=== PATIENT | female | born 2000 | race Caucasian/White ===

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

== ENCOUNTER 2022-12-11 21:19 | Observation (INO) ==
--- NOTE | 2022-12-11 22:13 | Emergency Department Note ---
Impression & Plan COVID-19, , Acute dehydration, Nausea & vomiting ED Provider Note NAME: LORRAINE HERNADEZ AGE: 22 SEX: F : 2000 ARRIVES VIA: Walk-In INFORMANT: Patient, ED PROVIDER(S): Sami Herrera MD CHIEF COMPLAINT: Fevers, body aches MEDICAL DECISION MAKING: Patient presents due to concern for fever and associated body aches in the setting of third trimester . IV was established and blood work was obtained. The patient was ordered IV antipyretics and IV fluids as well as IV antiemetics. Upon subsequent re assessment the patient did have some improvement in symptoms and was able to keep a bit of water down. Blood work showed a normal white count with a normal hemoglobin and platelet count. Kidney function is unremarkable. Patient's bio fire is positive for COVID-19. Currently not requiring supplemental oxygen. The patient's chest x-ray does not show any overt pneumonia. Patient is COVID- 19 positive. The patient has received 2 doses of vaccine. Patient has been persistently tachycardic into the 140s. The patient does not have any any overt signs of lower extremity swelling or DVT. However, given the patient's persistent discomfort tachycardia in the setting of do not think unreasonable for admission at this time. I did speak with the on-call CHIEF CUSTOMER OFFICER physician who states that they would typically not bring somebody on to L&D given her COVID status and they would defer to medical treatment at this time and if needed they can be on his consultation. This was per Dr. Hooks with CHIEF CUSTOMER OFFICER. I subsequently did speak with on-call hospitalist Dr. Lamar who admitted the patient to the medicine service. Prior /Outside records reviewed: I reviewed an OB visit from RADHA Sherman from December 02, 2022. Patient had been seen at that time and about 28 weeks and was scheduled for 2-hour glucose tolerance test. Patient had declined Tdap at that time. No contractions leaking of fluid and still feeling movement. Differential diagnosis: Viral syndrome, otitis, pharyngitis, pneumonia, influenza, meningitis, urinary tract infection, sepsis, bacteremia, as well as other pathologies. Diagnostics, as interpreted by me: ECG: Sinus tachycardia, rate rate of 135, normal AL and QRS, normal axis no ST elevations. No prior EKGs for comparison. Cardiac monitoring: An order was placed for continuous cardiac monitoring. The monitor shows a rate of 135 with tachycardic and regular rhythm. Patient was placed on pulse oximetry Medical decision rules: Wells score Imaging studies: See below I informally reviewed the patient's chest x-ray which does not show obvious consolidative pneumonia or pneumothorax. HPI: Patient presents due to concern for fever and body aches which began last evening. The patient's temperature has been greater than 101. The patient has been taking some occasional Tylenol. The patient is approximate 29 weeks and is a G1, P0. The patient has had associated movement but no leakage of fluid or vaginal bleeding. Patient does complain of diffuse body aches. No known sick contacts or recent travel. Patient denies any congestion. The patient has had mild nonproductive cough. Patient does complain of some chest discomfort. Chest discomfort is with coughing. No leg swelling or calf pain no history of DVT or PE. Patient has had associated nausea and vomiting. The patient's vomited approximate 5 times. No blood in the vomit. Patient denies any dysuria. PAST MEDICAL HISTORY: See Below PAST SURGICAL HISTORY: See Below SOCIAL HISTORY: See Below HOME MEDICATIONS: See Below ALLERGIES: See Below VITALS: See Below PHYSICAL EXAMINATION: GENERAL: Ill in appearance but nontoxic. EYE EXAM: Normal conjunctiva. PERRL, no anisocoria and EOM's grossly intact w/o pain. OROPHARYNX: Moist mucus membranes, grossly normal dentition. NECK: Supple, no nuchal rigidity, no adenopathy, non-tender. No signs of m eningismus. FROM of the neck with good chin to chest and neck extension. No stridor. LUNGS: Clear to auscultation. Normal chest wall mechanics. HEART: Tachycardic and regular, no MRG. ABDOMEN: Abdomen soft, fundus above the umbilicus, no masses, no rebound or guarding. BACK: No CVA TTP. SKIN: No rashes and no bruising. UPPER EXTREMITIES: Upper extremities are grossly normal. LOWER EXTREMITIES: Grossly normal, no edema. Negative Homans' sign bilaterally. NEURO EXAM: A&O x3, cranial nerves II-XII grossly intact, normal speech, moves all 4 extremities. 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, left Seizure as baby Surgical History History of ankle surgery History of cholecystectomy History of eye removal History of oral surgery palatoplasty for cleft palate History of placement of ear tubes Family History Family/Other Deep vein thrombosis, Onset Age: 80 great-grandmother Family/Other Myocardial infarction Mother Gestational diabetes Denies family history of Ovarian cancer Prostate cancer Breast cancer Colorectal cancer Uterine cancer Social History Smoking Status: Never smoker Second Hand Exposure: No; Do You Dip or Chew Tobacco: No; Hx Alcohol Use: No Hx Substance Use: Yes Substance Use Type Other:: daily use Preferred Language: [place] Communication Ability: Effective Hearing Ability: Normal 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 Feels Safe at Home: Yes Childhood Exposure to Second-Hand Smoke: Yes Diet: regular caffeine: No Dental Care, Regularly: Yes Physical Activity Frequency: 1-2 Times per Week Seatbelt Use: always Assistive Devices: None Allergies Allergies Allergy/AdvReac Type Severity Reaction Status Date / Time morphine AdvReac Severe GI UPSET Verified 11/03/22 08:21 Home Meds Home Medications Medication Instructions Recorded Confirmed vit no.95-ferrous 1 tab PO DAILY 12/11/22 12/11/22 fumarate 28 mg-folic acid 800 mcg tablet () Previous Rx's Medication Instructions Recorded acetone (urine) test (Ketone Urine #50 ea 12/04/22 Test strips) blood sugar diagnostic (OneTouch #150 ea 12/04/22 Verio test strips) blood-glucose meter (OneTouch #1 ea 12/04/22 Verio Reflect Meter) insulin NPH isoph U-100 human 100 10 unit (0.1 mL) subcut QPM #15 mL 12/04/22 unit/mL (3 mL) subcutaneous pen (Humulin N NPH U-100 Insulin SamsonikPen) lancets 33 gauge #150 ea 12/04/22 pen needle, diabetic 32 gauge x #100 ea 12/04/22" (BD Ultra-Fine Jill Pen Needle) acetaminophen 500 mg capsule 1,000 mg PO Q8H PRN pain or fever 12/13/22 #10 caps Results & Data (ED) Vital Signs Vital Signs - 24 hr 12/11/22 21:31 Temperature 38.5 C H Temperature Source Oral Pulse Rate 151 H Respiratory Rate 18 Respiratory Effort / Characteristics Non-Labored Spontaneous Respiratory Depth Normal Blood Pressure 132/79 Blood Pressure Mean 96 Pulse Oximetry 99 Oxygen Delivery Method Room Air Sepsis Recent Fever Within 48 Hours Yes Sepsis New/Unexplained Change in Mental Status No Sepsis Action Taken by Nursing No Action Required Home Medications Current Medication List: was personally reviewed by me Laboratory Data Attestation: I reviewed the patient's lab results. 12/13/22 06:25 12/13/22 06:25 Lab Results 12/11/22 12/11/22 12/11/22 Range/Units 22:00 22:00 22:00 WBC 9.54 (4.8-10.8) K/ul RBC 4.30 (4.20-5.40) M/uL Hgb 12.1 (12.0-16.0) g/dl Hct 35.1 L (37.0-47.0) % MCV 81.6 (80.0-100.0) fL MCH 28.1 (25.0-34.0) pg MCHC 34.5 (32.0-36.0) g/dL RDW Std Deviation 41.1 (36.4-46.3) fL RDW Coeff of Ryan 14.2 (11.5-14.5) % Plt Count 154 (130-400) K/uL MPV 10.9 (9.4-12.4) fL Immature Gran % (Auto) 0.6 % Neut % (Auto) 91.3 % Lymph % (Auto) 3.4 % Colbert % (Auto) 4.2 % Eos % (Auto) 0.2 % Baso % (Auto) 0.3 % Neut # (Auto) 8.71 H (1.40-6.50) K/uL Lymph # (Auto) 0.32 L (1.20-3.40) K/uL Colbert # (Auto) 0.40 (0.11-0.59) K/uL Eos # (Auto) 0.02 (0.00-0.50) K/uL Baso # (Auto) 0.03 (0.00-0.20) K/uL Immature Gran # (Auto) 0.06 (0.01-0.20) K/uL Sodium 136 (136-145) mmol/L Potassium 3.6 (3.5-5.1) mmol/L Chloride 107 (98-107) mmol/L Carbon Dioxide 19 L (21-32) mmol/L Anion Gap 10 (3-11) BUN 6 (6-23) mg/dl Creatinine 0.63 (0.6-1.2) mg/dl Est Cr Clr Drug Dosing 200.7 ml/min Est GFR ( Amer) 145.5 ml/min Est GFR (Non-Af Amer) 125.5 ml/min BUN/Creatinine Ratio 9.5 L (10-20) Glucose 106 H (70-99(Fasting)) mg/dl Calcium 9.2 (8.6-10.3) mg/dl Magnesium 1.7 (1.7-2.4) mg/dl Total Bilirubin 0.3 (0.2-1.0) mg/dl AST 35 (13-39) U/L ALT 33 (7-52) U/L Alkaline Phosphatase 81 (34-104) U/L Total Protein 7.3 (6.0-8.3) gm/dl Albumin 3.8 (3.4-5.0) gm/dl Globulin 3.5 (2.5-4.0) gm/dl Albumin/Globulin Ratio 1.1 (0.9-2) Lipase 26 (11-82) U/L TSH 0.488 (0.300-4.500) uIu/ml Urine Color Urine Appearance (Clear) Urine pH (4.5-7.5) Ur Specific Thornton (1.000-1.030) Urine Protein (Negative) Urine Glucose (UA) (Negative) Urine Ketones (Negative) Urine Blood (Negative) Urine Nitrite (Negative) Urine Bilirubin (Negative) Urine Urobilinogen (Negative) Ur Leukocyte Esterase (Negative) Urine WBC (Auto) (0-5) /hpf Urine RBC (Auto) (0-4) /hpf U Hyaline Cast (Auto) (0-5) /lpf U Epithel Cells (Auto) (0-5) /lpf Urine Bacteria (Auto) (Negative) Urine Crystals Calcium Oxalate Crystal (None Prsent) Adenovirus (PCR) (NotDetected) B. pertussis DNA (PCR) (NotDetected) B.parapertussis DNA PCR (NotDetected) C. pneumoniae DNA (PCR) (NotDetected) Coronavirus OC43 (PCR) (NotDetected) Coronavirus HKU1 (PCR) (NotDetected) Coronavirus 229E (PCR) (NotDetected) SARS-CoV-2 (PCR) (NotDetected) Coronavirus NL63 (PCR) (NotDetected) Human Metapneumovir PCR (NotDetected) Influenza Type A (PCR) (NotDetected) Influenza Type B (PCR) (NotDetected) M. pneumoniae (PCR) (NotDetected) Parainfluenza 1 (PCR) (NotDetected) Parainfluenza 2 (PCR) (NotDetected) Parainfluenza 3 (PCR) (NotDetected) Parainfluenza 4 (PCR) (NotDetected) RSV (PCR) (NotDetected) Entero/Rhino (PCR) (NotDetected) 12/11/22 12/12/22 Range/Units 23:15 00:44 WBC (4.8-10.8) K/ul RBC (4.20-5.40) M/uL Hgb (12.0-16.0) g/dl Hct (37.0-47.0) % MCV (80.0-100.0) fL MCH (25.0-34.0) pg MCHC (32.0-36.0) g/dL RDW Std Deviation (36.4-46.3) fL RDW Coeff of Ryan (11.5-14.5) % Plt Count (130-400) K/uL MPV (9.4-12.4) fL Immature Gran % (Auto) % Neut % (Auto) % Lymph % (Auto) % Colbert % (Auto) % Eos % (Auto) % Baso % (Auto) % Neut # (Auto) (1.40-6.50) K/uL Lymph # (Auto) (1.20-3.40) K/uL Colbert # (Auto) (0.11-0.59) K/uL Eos # (Auto) (0.00-0.50) K/uL Baso # (Auto) (0.00-0.20) K/uL Immature Gran # (Auto) (0.01-0.20) K/uL Sodium (136-145) mmol/L Potassium (3.5-5.1) mmol/L Chloride (98-107) mmol/L Carbon Dioxide (21-32) mmol/L Anion Gap (3-11) BUN (6-23) mg/dl Creatinine (0.6-1.2) mg/dl Est Cr Clr Drug Dosing ml/min Est GFR ( Amer) ml/min Est GFR (Non-Af Amer) ml/min BUN/Creatinine Ratio (10-20) Glucose (70-99(Fasting)) mg/dl Calcium (8.6-10.3) mg/dl Magnesium (1.7-2.4) mg/dl Total Bilirubin (0.2-1.0) mg/dl AST (13-39) U/L ALT (7-52) U/L Alkaline Phosphatase (34-104) U/L Total Protein (6.0-8.3) gm/dl Albumin (3.4-5.0) gm/dl Globulin (2.5-4.0) gm/dl Albumin/Globulin Ratio (0.9-2) Lipase (11-82) U/L TSH (0.300-4.500) uIu/ml Urine Color Dark Yellow Urine Appearance Cloudy A (Clear) Urine pH 6.0 (4.5-7.5) Ur Specific Thornton 1.022 (1.000-1.030) Urine Protein Trace H (Negative) Urine Glucose (UA) Negative (Negative) Urine Ketones 2+ H (Negative) Urine Blood Negative (Negative) Urine Nitrite Negative (Negative) Urine Bilirubin Negative (Negative) Urine Urobilinogen Negative (Negative) Ur Leukocyte Esterase 1+ H (Negative) Urine WBC (Auto) 10-30 H (0-5) /hpf Urine RBC (Auto) 0-4 (0-4) /hpf U Hyaline Cast (Auto) 1-5 (0-5) /lpf U Epithel Cells (Auto) >30 H (0-5) /lpf Urine Bacteria (Auto) 1+ H (Negative) Urine Crystals Not Reportable Calcium Oxalate Crystal Present A (None Prsent) Adenovirus (PCR) Not Detected (NotDetected) B. pertussis DNA (PCR) Not Detected (NotDetected) B.parapertussis DNA PCR Not Detected (NotDetected) C. pneumoniae DNA (PCR) Not Detected (NotDetected) Coronavirus OC43 (PCR) Not Detected (NotDetected) Coronavirus HKU1 (PCR) Not Detected (NotDetected) Coronavirus 229E (PCR) Not Detected (NotDetected) SARS-CoV-2 (PCR) DETECTED A* (NotDetected) Coronavirus NL63 (PCR) Not Detected (NotDetected) Human Metapneumovir PCR Not Detected (NotDetected) Influenza Type A (PCR) Not Detected (NotDetected) Influenza Type B (PCR) Not Detected (NotDetected) M. pneumoniae (PCR) Not Detected (NotDetected) Parainfluenza 1 (PCR) Not Detected (NotDetected) Parainfluenza 2 (PCR) Not Detected (NotDetected) Parainfluenza 3 (PCR) Not Detected (NotDetected) Parainfluenza 4 (PCR) Not Detected (NotDetected) RSV (PCR) Not Detected (NotDetected) Entero/Rhino (PCR) Not Detected (NotDetected) Administered Medications Discontinued Medications Acetaminophen (Acetaminophen 325 Mg Tab) 650 mg PO Q4H PRN PRN Reason: pain or fever Stop: 01/11/23 03:12 Last Admin: 12/12/22 06:09 Dose: 650 mg Documented By: ESG Enoxaparin Sodium (Enoxaparin Inj 40 Mg/0.4 Ml Syr) 40 mg SQ BID RILEY Stop: 01/11/23 08:59 Last Admin: 12/13/22 08:26 Dose: 40 mg Documented By: Admin: 12/12/22 21:50 Dose: 40 mg Documented By: Admin: 12/12/22 09:14 Dose: 40 mg Documented By: MTP Sodium Chloride (Nss 1000ml) 1,000 mls @ 999 mls/hr IV .Q1H1M STA Stop: 12/11/22 23:21 Last Infusion: 12/12/22 00:45 Dose: 0 mls/hr Documented By: Admin: 12/11/22 22:43 Dose: 999 mls/hr Documented By: LAKHWINDER Acetaminophen (Ofirmev) 1,000 mg in 100 mls @ 400 mls/hr IV NOW STA Stop: 12/12/22 00:26 Last Infusion: 12/12/22 00:45 Dose: 0 mls/hr Documented By: Admin: 12/12/22 00:24 Dose: 400 mls/hr Documented By: TANJA Famotidine (Pepcid 20mg Iv Push) 20 mg in 5 mls @ 2.5 mls/min IV NOW STA Stop: 12/12/22 02:11 Last Admin: 12/12/22 02:21 Dose: 2.5 mls/min Documented By: TANJA Lactated Ringer's (Lr) 1,000 mls @ 100 mls/hr IV .Q10H RILEY Stop: 12/12/22 12:22 Last Infusion: 12/12/22 19:44 Dose: 0 mls/hr Documented By: Admin: 12/12/22 03:42 Dose: 125 mls/hr Documented By: SERAB Magnesium Sulfate/Dextrose (Magnesium Sulfate / D5w) 1 gm in 100 mls @ 50 mls/hr IV Q2H RILEY Stop: 12/12/22 13:14 Last Infusion: 12/12/22 19:44 Dose: 0 mls/hr Documented By: Admin: 12/12/22 11:57 Dose: 50 mls/hr Documented By: Infusion: 12/12/22 11:57 Dose: 50 mls/hr Documented By: Admin: 12/12/22 10:43 Dose: 50 mls/hr Documented By: MTP Famotidine 20 mg/ Syringe 5 mls @ 2.5 mls/min IV BID RILEY Stop: 01/11/23 09:14 Last Admin: 12/13/22 08:24 Dose: 2.5 mls/min Documented By: Admin: 12/12/22 21:50 Dose: 2.5 mls/min Documented By: Admin: 12/12/22 10:43 Dose: 2.5 mls/min Documented By: MTP Potassium Chloride (K Giuseppe / Wtr) 10 meq in 100 mls @ 100 mls/hr IV Q1H RILEY Stop: 12/12/22 11:14 Last Admin: 12/12/22 11:33 Dose: Not Given Documented By: Admin: 12/12/22 11:30 Dose: Not Given Documented By: MTP Acetaminophen (Ofirmev) 1,000 mg in 100 mls @ 400 mls/hr IV Q8H PRN PRN Reason: fever or pain Stop: 12/15/22 11:07 Last Infusion: 12/12/22 19:44 Dose: 0 mls/hr Documented By: Admin: 12/12/22 12:11 Dose: 400 mls/hr Documented By: MTP Sodium Chloride (Nss 1000ml) 1,000 mls @ 75 mls/hr IV .[id number] RILEY Stop: 12/13/22 10:19 Last Infusion: 12/13/22 11:26 Dose: 0 mls/hr Documented By: Admin: 12/12/22 21:45 Dose: 75 mls/hr Documented By: ESMeghna Magnesium Sulfate/Dextrose (Magnesium Sulfate / D5w) 1 gm in 100 mls @ 50 mls/hr IV ONE ONE Stop: 12/13/22 09:49 Last Admin: 12/13/22 07:57 Dose: Not Given Documented By: CHANDRIKA Insulin Aspart (Insulin Aspart Per Unit Charge) 0 units SC ACHS [facility] Stop: 01/11/23 07:29 Last Admin: 12/13/22 08:04 Dose: Not Given Documented By: Admin: 12/12/22 21:30 Dose: Not Given Documented By: ESG Co-signed By: JENNIFER Admin: 12/12/22 16:49 Dose: Not Given Documented By: Admin: 12/12/22 11:58 Dose: Not Given Documented By: Admin: 12/12/22 09:30 Dose: 2 units Documented By: MTP Co-signed By: LIONEL Insulin Human NPH (Insulin Human Nph) 10 units SC HS [facility] Stop: 01/11/23 20:59 Last Admin: 12/12/22 21:35 Dose: Not Given Documented By: ESG Ondansetron HCl (Ondansetron Inj 2 Mg/Ml 2 Ml Vial) 4 mg IV NOW STA Stop: 12/11/22 22:22 Last Admin: 12/11/22 22:42 Dose: 4 mg Documented By: LAKHWINDER Ondansetron HCl (Ondansetron Inj 2 Mg/Ml 2 Ml Vial) 4 mg IV Q6H PRN PRN Reason: Nausea And Vomiting Stop: 01/11/23 03:12 Last Admin: 12/12/22 22:10 Dose: 4 mg Documented By: Admin: 12/12/22 12:12 Dose: 4 mg Documented By: MTP Potassium Chloride (Potassium Chloride Crtab 20 Meq Tabcr) 20 meq PO NOW STA Stop: 12/12/22 09:11 Last Admin: 12/12/22 10:43 Dose: 20 meq Documented By: MTP Potassium Chloride (Potassium Chloride Crtab 20 Meq Tabcr) 40 meq PO NOW STA Stop: 12/12/22 11:16 Last Admin: 12/12/22 11:56 Dose: 40 meq Documented By: NATY Potassium Chloride (Potassium Chloride Crtab 20 Meq Tabcr) 20 meq PO NOW STA Stop: 12/13/22 07:51 Last Admin: 12/13/22 08:24 Dose: 20 meq Documented By: CHANDRIKA Prenat Multivit/Training And Development Head/Iron/Folic Ac ( Vitamin 1 Tab) 1 tab PO DAILY RILEY Stop: 01/11/23 08:59 Last Admin: 12/13/22 08:24 Dose: 1 tab Documented By: Admin: 12/12/22 09:14 Dose: 1 tab Documented By: [facility] Imaging Data Radiologist's Impression: Chest X-Ray 12/11/22 22:21 XR chest 1V portable CLINICAL HISTORY: Fever. COMPARISON STUDY: Chest radiograph July 07, 2016. FINDINGS: Lung volumes are normal. Lungs are clear. There is no pneumothorax or pleural effusion. Cardiac size is normal. Mediastinal contours are normal. There is no evidence for pulmonary edema. IMPRESSION: No acute cardiopulmonary findings. ACT 112: Negative or not required by law. Electronically signed by: Abraham Gandhi M.D. 12/12/2022 6:48 AM Discharge Plan Visit Data Chief Complaint: Flu Like Symptoms Stated Complaint: 29WKS PREG,FEVER,COUGH,BODY ACHES ED Provider: Sami Herrera Discharge Problem: COVID-19, , Acute dehydration, Nausea & vomiting Patient Disposition: Admitted As Inpatient Discharge Instructions Interventions: ED Discharge Assessment Last Done: 12/12/22 02:57
[2022-12-11] MEDS ORDERED: ONDANSETRON INJ 2 MG/ML 2 ML VIAL IV STA (22:21)
[2022-12-11] MEDS ORDERED: SODIUM CHLORIDE 0.9% 1000ML 1,000 ML IV STA (22:21)
[2022-12-11 22:52] LABS: Hematocrit (blood only) 35.1 % (37.0-47.0); Hemoglobin 12.1 g/dl (12.0-16.0); Mean Corpuscular Hemoglobin 28.1 pg (25.0-34.0); Mean Corpuscular Hgb Conc 34.5 g/dL (32.0-36.0); Mean Corpuscular Volume 81.6 fL (80.0-100.0); Mean Platelet Volume 10.9 fL (9.4-12.4); Platelet Count 154 K/uL (130-400); RDW Coefficient of Variation 14.2 % (11.5-14.5); RDW Standard Deviation 41.1 fL (36.4-46.3); White Blood Count 9.54 K/ul (4.8-10.8)
[2022-12-11 23:11] LABS: Albumin Globulin Ratio 1.1 (0.9-2); Albumin Level 3.8 gm/dl (3.4-5.0); BUN Creatinine Ratio 9.5 (10-20); Bilirubin,Total 0.3 mg/dl (0.2-1.0); Calcium 9.2 mg/dl (8.6-10.3); Creatinine Clr Calc Pharmacy 200.7 ml/min; Est GFR (African American) 145.5 ml/min; Est GFR (Non-African American) 125.5 ml/min; Globulin 3.5 gm/dl (2.5-4.0); Potassium 3.6 mmol/L (3.5-5.1); Total Protein 7.3 gm/dl (6.0-8.3)
[2022-12-12] MEDS ORDERED: ACETAMINOPHEN 1,000 MG/100 ML VIAL IV STA (00:12)
[2022-12-12 00:26] LABS: Basophils # (auto) 0.03 K/uL (0.00-0.20); Basophils % (auto) 0.3 %; Eosinophils # (auto) 0.02 K/uL (0.00-0.50); Eosinophils % (auto) 0.2 %; Immature Granulocytes # (auto) 0.06 K/uL (0.01-0.20); Immature Granulocytes % (auto) 0.6 %; Lymphocytes # (auto) 0.32 K/uL (1.20-3.40); Lymphocytes % (auto) 3.4 %; Monocytes % (auto) 4.2 %; Neutrophils # (auto) 8.71 K/uL (1.40-6.50); Neutrophils % (auto) 91.3 %
[2022-12-12 00:41] LABS: Adenovirus PCR Not Detected (NotDetected); Bordetella parapertussis PCR Not Detected (NotDetected); Bordetella pertussis PCR Not Detected (NotDetected); Chlamydia pneumoniae PCR Not Detected (NotDetected); Coronavirus 229E PCR Not Detected (NotDetected); Coronavirus HKU1 PCR Not Detected (NotDetected); Coronavirus NL63 PCR Not Detected (NotDetected); Coronavirus OC43PCR Not Detected (NotDetected); Human Metapneumovirus PCR Not Detected (NotDetected); Influenza A PCR Not Detected (NotDetected); Influenza B PCR Not Detected (NotDetected); Mycoplasma pneumoniae PCR Not Detected (NotDetected); Parainfluenza Virus 1 PCR Not Detected (NotDetected); Parainfluenza Virus 2 PCR Not Detected (NotDetected); Parainfluenza Virus 3 PCR Not Detected (NotDetected); Parainfluenza Virus 4 PCR Not Detected (NotDetected); Respiratory Syncytial VirusPCR Not Detected (NotDetected); Rhinovirus/Enterovirus PCR Not Detected (NotDetected)
[2022-12-12 00:50] LABS: Coronavirus CoV-2 (COVID19)PCR DETECTED (NotDetected)
[2022-12-12 00:59] LABS: Appearance Urine Cloudy (Clear); Bacteria Urine Automated 1+ (Negative); Bilirubin Urine Negative (Negative); Blood Urine Negative (Negative); Color Urine Dark Yellow; Epithelial Cell Urine Auto >30 /lpf (0-5); Glucose Urine UA Negative (Negative); Ketones Urine 2+ (Negative); Leukocyte Esterase Urine 1+ (Negative); Nitrite Urine Negative (Negative); Protein Urine Trace (Negative); RBC Urine Automated 0-4 /hpf (0-4); Specific Gravity Urine 1.022 (1.000-1.030); Urobilinogen Urine Negative (Negative)
--- NOTE | 2022-12-12 01:19 | History & Physical Report ---
Date of Service December 12, 2022 Assessment & Plan (1) COVID-19: Plan: 22yo female G1PO at 29+ weeks presenting with Covid-19 infection. Patient with persistent fever, tachycardia, nausea and po intolerance. Fortunately her saturations on room air are adequate - no hypoxia. -Admit to medical -Maintain isolation precautions -Monitor saturations - no need for Dexamethasone or Remdesivir at this time -Zofran PRN nausea -Tylenol PRN fever and body aches -IVF - LR at 125mL/hr x 2L -Lovenox for DVT prophylaxis Tachycardia - appears to be sinus tachycardia on monitor. Likely secondary to patient's acute illness -EKG ordered -Check Mg and TSH -IVF, fever control (2) Gestational diabetes mellitus (GDM) affecting , antepartum: Plan: Patient with gestational DM. She is on NPH insulin at home - dose has been increasing, now on 40u qPM. She has not been eating much or tolerating PO. [id number] here -NPH 10u qHS -ISS -Goal fasting AM glucose of 90-95 and 1hr post-prandial <140 -Consider pharmacy consultation if blood sugars remain high (3) : Plan: G1PO at 29 weeks. -Ob consultation appreciated for monitoring if necessary F/E/N - LR at 125mL/hr x 2L, monitor electrolytes and replete as needed, CC diet as tolerated Ppx - Lovenox 40u BID for DVT prophylaxis - Covid + + BMI of 40.5 increased risk for VTE Code - Full Dispo - Admit to medical History of Present Illness Chief Complaint: nausea, fever, po intolerance Primary Care Provider: DO Reny Caalgovind Heredia is a pleasant 22yo female at 29weeks gestation presenting with Covid-19 infection. Patient reports waking yesterday morning 12/11/22 around 02:00 with shaking chills and fever. She has had continued fever throughout the day which is minimally responsive to Tylenol. Also with persistent nausea with multiple episodes on non-bloody/non-bilious emesis, PO intolerance - only able to drink a small amount of alejo analilia today. She does feel slightly short of breath when her fever is high, otherwise denies cough, chest pain or shortness of breath. No complaint of diarrhea. Patient received 2 Covid-19 vaccines. To her knowledge has never had Covid-19 before. In regards to her - she has gestational diabetes. She is taking NPH insulin qHS and has been increasing her dosage because her AM blood sugars remain uncontrolled. She is presently on 40u qPM. She reports fairly consistent nausea throughout the as well as a new baseline heart rate of 100 - 120. She denies bleeding, spotting, discharge or cramping. Denies edema, visual changes. She reports movements but feels that the baby is slightly less active today than usual. No additional complaints. In the ER patient is febrile to 39.5, tachycardic at 145bpm HR improved to 120's during my encounter Nausea has improved after receiving Zofran ER Course - NSS x 1L Zofran 4mg IV Tylenol 1gm Allergies Allergy/AdvReac Type Severity Reaction Status Date / Time morphine AdvReac Severe GI UPSET Verified 11/03/22 08:21 Home Medications Medication Instructions Recorded Confirmed Type acetone (urine) test (Ketone Urine #50 ea 12/04/22 12/11/22 Rx Test strips) blood sugar diagnostic (OneTouch #150 ea 12/04/22 12/11/22 Rx Verio test strips) blood-glucose meter (OneTouch #1 ea 12/04/22 12/11/22 Rx Verio Reflect Meter) insulin NPH isoph U-100 human 100 10 unit (0.1 mL) subcut QPM #15 mL 12/04/22 12/11/22 Rx unit/mL (3 mL) subcutaneous pen (Humulin N NPH U-100 Insulin KwikPen) lancets 33 gauge #150 ea 12/04/22 12/11/22 Rx pen needle, diabetic 32 gauge x #100 ea 12/04/22 12/11/22 Rx 5/32" (BD Ultra-Fine Jill Pen Needle) vit no.95-ferrous 1 tab PO DAILY 12/11/22 12/11/22 History fumarate 28 mg-folic acid 800 mcg tablet () Past Med/Surg History Medical History (Updated 12/12/22 @ 01:49 by Nicolle Lamar DO) Anxiety Bipolar 1 disorder Depressed GERD (gastroesophageal reflux disease) History of closed head injury 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, left Seizure as baby Surgical History History of ankle surgery History of cholecystectomy History of eye removal History of oral surgery palatoplasty for cleft palate History of placement of ear tubes Family History Family/Other Deep vein thrombosis, Onset Age: 80 great-grandmother Family/Other Myocardial infarction Mother Gestational diabetes Denies family history of Ovarian cancer Prostate cancer Breast cancer Colorectal cancer Uterine cancer Social History (Updated 07/08/22 @ 09:58 by Kaitlin Ramos) Smoking Status: Never smoker Second Hand Exposure: No; Do You Dip or Chew Tobacco: No; Hx Alcohol Use: No Hx Substance Use: No Preferred Language: Uzbek Communication Ability: Effective Hearing Ability: Normal Voting Machine Repairer Required: No Beliefs That Will Affect Care: None marital status: marital status details: Garcia (26) [phone] Current Living Situation: Spouse Current Living Situation Comment: lives with spouse, 1 dog, 2 cats, spouse to change litter. current occupational status: employed current occupation: [employer] de[employer]. Feels Safe at Home: Yes Childhood Exposure to Second-Hand Smoke: Yes Diet: regular caffeine: No Dental Care, Regularly: Yes Physical Activity Frequency: 1-2 Times per Week Seatbelt Use: always Assistive Devices: None Review of Systems Review of Systems: All systems reviewed & are unremarkable except as noted in HPI & below Physical Exam Physical Exam: General: patient ill in appearance, non-toxic, oriented x 4 Skin: warm, diaphoretic, no rash HEENT: NC/AT, left eye prosthesis in place, anicteric sclera, conjunctiva without injection, external ear normal to inspection and nontender, nares patent, moist mucus membranes, dentition intact, no oropharyngeal lesions, neck supple, trachea midline, no LAD, no thyromegaly, no JVD Heart: +S1/S2, regular, tachycardic, no m/r/g Lungs: equal air entry bilaterally, no rales/rhonchi/wheezes Abd: +BS, soft, NT/ND, gravid uterus Ext: warm, 2+ pulses in UE/LE bilaterally, no clubbing/cyanosis or edema Neuro: nonfocal, patient AA&O x 4, speech intact, no facial droop, moving all extremities on command with equal strength 5/5 Results & Data Results & Data Vital Signs (Past 12 Hours) Vital Signs Temp Pulse Resp BP Pulse Ox O2 Del Method 12/12/22 01:00 145 H 18 163/77 H 97 Room Air 12/12/22 00:44 139 H 29 H 149/56 H 96 Room Air 12/12/22 00:30 135 H 25 H 99 Room Air 12/12/22 00:49 39.5 C H 12/12/22 00:00 135 H 27 H 162/65 H 98 Room Air 12/11/22 23:31 136 H 22 152/58 H 98 Room Air 12/11/22 23:00 130/78 12/11/22 23:00 137 H 26 H 99 12/11/22 22:41 141 H 25 H 142/65 H 96 12/11/22 22:30 136 H 24 80/54 L 97 12/11/22 22:23 143 H 20 104/77 96 12/11/22 22:19 146 H 12/11/22 21:31 38.5 C H 151 H 18 132/79 99 Room Air Laboratory Results Laboratory Results WBC 9.54 K/ul (4.8-10.8) 12/11/22 22:00 RBC 4.30 M/uL (4.20-5.40) 12/11/22 22:00 Hgb 12.1 g/dl (12.0-16.0) 12/11/22 22:00 Hct 35.1 % (37.0-47.0) L 12/11/22 22:00 MCV 81.6 fL (80.0-100.0) 12/11/22 22:00 MCH 28.1 pg (25.0-34.0) 12/11/22 22:00 MCHC 34.5 g/dL (32.0-36.0) 12/11/22 22:00 RDW Std Deviation 41.1 fL (36.4-46.3) 12/11/22 22:00 RDW Coeff of Ryan 14.2 % (11.5-14.5) 12/11/22 22:00 Plt Count 154 K/uL (130-400) 12/11/22 22:00 MPV 10.9 fL (9.4-12.4) 12/11/22 22:00 Immature Gran % (Auto) 0.6 % 12/11/22 22:00 Neut % (Auto) 91.3 % 12/11/22 22:00 Lymph % (Auto) 3.4 % 12/11/22 22:00 [place] % (Auto) 4.2 % 12/11/22 22:00 Eos % (Auto) 0.2 % 12/11/22 22:00 Baso % (Auto) 0.3 % 12/11/22 22:00 Neut # (Auto) 8.71 K/uL (1.40-6.50) H 12/11/22 22:00 Lymph # (Auto) 0.32 K/uL (1.20-3.40) L 12/11/22 22:00 [place] # (Auto) 0.40 K/uL (0.11-0.59) 12/11/22 22:00 Eos # (Auto) 0.02 K/uL (0.00-0.50) 12/11/22 22:00 Baso # (Auto) 0.03 K/uL (0.00-0.20) 12/11/22 22:00 Immature Gran # (Auto) 0.06 K/uL (0.01-0.20) 12/11/22 22:00 Sodium 136 mmol/L (136-145) 12/11/22 22:00 Potassium 3.6 mmol/L (3.5-5.1) 12/11/22 22:00 Chloride 107 mmol/L (98-107) 12/11/22 22:00 Carbon Dioxide 19 mmol/L (21-32) L 12/11/22 22:00 Anion Gap 10 (3-11) 12/11/22 22:00 BUN 6 mg/dl (6-23) 12/11/22 22:00 Creatinine 0.63 mg/dl (0.6-1.2) 12/11/22 22:00 Est Cr Clr Drug Dosing 200.7 ml/min 12/11/22 22:00 Est GFR ( Amer) 145.5 ml/min 12/11/22 22:00 Est GFR (Non-Af Amer) 125.5 ml/min 12/11/22 22:00 BUN/Creatinine Ratio 9.5 (10-20) L 12/11/22 22:00 Glucose 106 mg/dl (70-99(Fasting)) H 12/11/22 22:00 Calcium 9.2 mg/dl (8.6-10.3) 12/11/22 22:00 Total Bilirubin 0.3 mg/dl (0.2-1.0) 12/11/22 22:00 AST 35 U/L (13-39) 12/11/22 22:00 ALT 33 U/L (7-52) 12/11/22 22:00 Alkaline Phosphatase 81 U/L (34-104) 12/11/22 22:00 Total Protein 7.3 gm/dl (6.0-8.3) 12/11/22 22:00 Albumin 3.8 gm/dl (3.4-5.0) 12/11/22 22:00 Globulin 3.5 gm/dl (2.5-4.0) 12/11/22 22:00 Albumin/Globulin Ratio 1.1 (0.9-2) 12/11/22 22:00 Lipase 26 U/L (11-82) 12/11/22 22:00 Urine Color Dark Yellow 12/12/22 00:44 Urine Appearance Cloudy (Clear) A 12/12/22 00:44 Urine pH 6.0 (4.5-7.5) 12/12/22 00:44 Ur Specific [place] 1.022 (1.000-1.030) 12/12/22 00:44 Urine Protein Trace (Negative) H 12/12/22 00:44 Urine Glucose (UA) Negative (Negative) 12/12/22 00:44 Urine Ketones 2+ (Negative) H 12/12/22 00:44 Urine Blood Negative (Negative) 12/12/22 00:44 Urine Nitrite Negative (Negative) 12/12/22 00:44 Urine Bilirubin Negative (Negative) 12/12/22 00:44 Urine Urobilinogen Negative (Negative) 12/12/22 00:44 Ur Leukocyte Esterase 1+ (Negative) H 12/12/22 00:44 Urine WBC (Auto) 10-30 /hpf (0-5) H 12/12/22 00:44 Urine RBC (Auto) 0-4 /hpf (0-4) 12/12/22 00:44 U Hyaline Cast (Auto) 1-5 /lpf (0-5) 12/12/22 00:44 U Epithel Cells (Auto) >30 /lpf (0-5) H 12/12/22 00:44 Urine Bacteria (Auto) 1+ (Negative) H 12/12/22 00:44 Urine Crystals Not Reportable 12/12/22 00:44 Calcium Oxalate Crystal Present (None Prsent) A 12/12/22 00:44 Adenovirus (PCR) Not Detected (NotDetected) 12/11/22 23:15 B. pertussis DNA (PCR) Not Detected (NotDetected) 12/11/22 23:15 B.parapertussis DNA PCR Not Detected (NotDetected) 12/11/22 23:15 C. pneumoniae DNA (PCR) Not Detected (NotDetected) 12/11/22 23:15 Coronavirus OC43 (PCR) Not Detected (NotDetected) 12/11/22 23:15 Coronavirus HKU1 (PCR) Not Detected (NotDetected) 12/11/22 23:15 Coronavirus 229E (PCR) Not Detected (NotDetected) 12/11/22 23:15 SARS-CoV-2 (PCR) DETECTED (NotDetected) A* 12/11/22 23:15 Coronavirus NL63 (PCR) Not Detected (NotDetected) 12/11/22 23:15 Human Metapneumovir PCR Not Detected (NotDetected) 12/11/22 23:15 Influenza Type A (PCR) Not Detected (NotDetected) 12/11/22 23:15 Influenza Type B (PCR) Not Detected (NotDetected) 12/11/22 23:15 M. pneumoniae (PCR) Not Detected (NotDetected) 12/11/22 23:15 Parainfluenza 1 (PCR) Not Detected (NotDetected) 12/11/22 23:15 Parainfluenza 2 (PCR) Not Detected (NotDetected) 12/11/22 23:15 Parainfluenza 3 (PCR) Not Detected (NotDetected) 12/11/22 23:15 Parainfluenza 4 (PCR) Not Detected (NotDetected) 12/11/22 23:15 RSV (PCR) Not Detected (NotDetected) 12/11/22 23:15 Entero/Rhino (PCR) Not Detected (NotDetected) 12/11/22 23:15 Diagnostic Findings CXR - per my interpretation - no obvious infiltrate, edema or pneumothorax. ECG Additional Comments: ordered Code Status & VTE Plan VTE Prophylaxis Plan VTE Prophylaxis will be ordered: Yes PG Care Time/CCT Total # of Minutes Spent Total Time Spent with Patient: Total time spent is greater than 50% in coordination of care (as documented) at patient's floor/unit and/or counseling patient: Coding Level of Care Code 06800 INT INP/OBS CARE 2/55MIN Diagnoses COVID-19 U07.1 Gestational diabetes mellitus (GDM) affecting , antepartum O24.419 Z34.90
[2022-12-12 01:36] LABS: Calcium Oxalate Crystals Urine Present (None Prsent)
[2022-12-12] MEDS ORDERED: FAMOTIDINE 20MG IV PUSH 20 MG/5 ML SYR IV STA (02:10)
[2022-12-12] MEDS ORDERED: DEXTROSE 50% 50 ML SYRINGE IV PRN (03:13)
[2022-12-12] MEDS ORDERED: GLUCAGON FOR INJ 1 MG VIAL SQ PRN (03:13)
[2022-12-12] MEDS ORDERED: CARBOHYDRATES FOR HYPOGLYCEMIA PO PRN (03:13)
[2022-12-12] MEDS ORDERED: GLUCOSE 10 TAB/TUBE PO PRN (03:13)
[2022-12-12] MEDS ORDERED: ACETAMINOPHEN 325 MG TAB PO PRN (03:13)
[2022-12-12] MEDS ORDERED: GLUCOSE 40% GEL 15 GM TUBE PO PRN (03:13)
[2022-12-12] MEDS ORDERED: LACTATED RINGER'S 1,000 ML IV SCH (03:45)
[2022-12-12 04:05] LABS: Magnesium 1.7 mg/dl (1.7-2.4)
--- NOTE | 2022-12-12 06:49 | XRay Report ---
XR chest 1V portable CLINICAL HISTORY: Fever. COMPARISON STUDY: Chest radiograph July 07, 2016. FINDINGS: Lung volumes are normal. Lungs are clear. There is no pneumothorax or pleural effusion. Car diac size is normal. Mediastinal contours are normal. There is no evidence for pulmonary edema. IMPRESSION: No acute cardiopulmonary findings. ACT 112: Negative or not required by law. Electronically signed by: Abraham Gandhi M.D. 12/12/2022 6:48 AM
--- NOTE | 2022-12-12 08:25 | OB/GYN Consultation ---
Date of Consultation December 12, 2022 Assessment & Plan (1) COVID-19: Primary team care of viral illness greatly appreciated. Supportive care, r/o cardiac complications given tachycardia. Noted support of the patient's insulin-dependent GDM management as well, currently very limited PO intake with BG in goal range. (2) : status will be checked with Q-shift nonstress testing. If patient continues to improve clinically and has no OB complaints this can likely decrea se to daily. OB team will remain available to assist as needed, please call with any questions. History of Present Illness Reason for Consultation: patient admitted with COVID Attending Physician: Rob Ashraf MD History of Present Illness 22yo at 29w3d with a phipps, complicated by A2GDM, obesity, and abnormal cffDNA due to low fraction. Patient did see [facility] and has had anatomy ultrasound which showed a normal fetus, though there was abnormal placentation with multiple lakes and a thickened placenta. There is also a history of maternal and paternal cleft palate s/p repair, though this was not seen on the baby at anatomy scan. The fetus was LGA and growth scans are planned serially at [facility], as well as the patient having voiced her preference to deliver at [place] rather than [facility]. She may also have begun using medical marijuana as a coping mechanism for grief after the loss of a grandparent during this , having voiced a plan to do so at a prior visit, though it is unclear whether she did in fact pursue this. She has declined antidepressant medication during her acute grief, despite counseling about the risks and benefits. She additionally has declined vaccinations. At the time of my visit this morning Martita has movement, no LOF or VB, and no contractions. She feels "miserable" with fever, chills, and generalized aching. She does not cough during our time together and speaks fluidly, but is flushed and says she feels very hot, and recently asked for a dose of tylenol a little early because her fever is rising again and that makes her feel her worst. Nausea is a little better since admission but she still has no appetite at all. Martita presented to the ER late on 12/11/22 with flu-like symptoms including fever, cough, body aches, nausea. She was found to be COVID-19 positive. Although her oxygen saturation has been maintained at goal for (>95%) there was concern about her pulse, which showed persistent mild to moderate tachycardia, and therefore she was admitted to medicine service with acute viral illness. Her goals of care include improvement of nausea so she can better tolerate PO diet while managing her glucose, and improvement of her tachycardia. She will be undergoing EKG and laboratory evaluation, IV hydration, lovenox for DVT prophylaxis, and symptom management. Her illness is not meeting criteria for Dex or Remdesivir currently per the primary team whose care is deeply appreciated. Allergies Allergy/AdvReac Type Severity Reaction Status Date / Time morphine AdvReac Severe GI UPSET Verified 11/03/22 08:21 Home Medications Medication Instructions Recorded Confirmed Type acetone (urine) test (Ketone Urine #50 ea 12/04/22 12/11/22 Rx Test strips) blood sugar diagnostic (OneTouch #150 ea 12/04/22 12/11/22 Rx Verio test strips) blood-glucose meter (OneTouch #1 ea 12/04/22 12/11/22 Rx Verio Reflect Meter) insulin NPH isoph U-100 human 100 10 unit (0.1 mL) subcut QPM #15 mL 12/04/22 12/11/22 Rx unit/mL (3 mL) subcutaneous pen (Humulin N NPH U-100 Insulin KwikPen) lancets 33 gauge #150 ea 12/04/22 12/11/22 Rx pen needle, diabetic 32 gauge x #100 ea 12/04/22 12/11/22 Rx 5/32" (BD Ultra-Fine Jill Pen Needle) vit no.95-ferrous 1 tab PO DAILY 12/11/22 12/11/22 History fumarate 28 mg-folic acid 800 mcg tablet () Patient History Medical History Anxiety Bipolar 1 disorder Depressed GERD (gastroesophageal reflux disease) History of closed head injury 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, left Seizure as baby Surgical History History of ankle surgery History of cholecystectomy History of eye removal History of oral surgery palatoplasty for cleft palate History of placement of ear tubes Family History Family/Other Deep vein thrombosis, Onset Age: 80 great-grandmother Family/Other Myocardial infarction Mother Gestational diabetes Denies family history of Ovarian cancer Prostate cancer Breast cancer Colorectal cancer Uterine cancer Social History Smoking Status: Never smoker Second Hand Exposure: No; Do You Dip or Chew Tobacco: No; Hx Alcohol Use: No Hx Substance Use: Yes Substance Use Type Other:: daily use Preferred Language: Nepali Communication Ability: Effective Hearing Ability: Normal Bicycle Fitter Required: No Beliefs That Will Affect Care: None marital status: marital status details: Garcia (26) [phone] Current Living Situation: Spouse Current Living Situation Comment: WITH current occupational status: employed current occupation: [employer] de[employer]. Feels Safe at Home: Yes Childhood Exposure to Second-Hand Smoke: Yes Diet: regular caffeine: No Dental Care, Regularly: Yes Physical Activity Frequency: 1-2 Times per Week Seatbelt Use: always Assistive Devices: Glasses Physical Exam Physical Exam: Sitting at bedside, then changes to lying down, during our discussion. Facial flushing / salvador cheeks, diaphoretic. Speech is fluid, no evident respiratory distress, complete sentences without pausing and no cough. Abd is soft and nontender with an AGA fundal height and obesity noted. Extremities are unremarkable, no significant edema. Patient is in isolation room 214, unmasked, alone, at the time of my exam. Results & Data Vital Signs (Past 12 Hours) Vital Signs Temp Pulse Pulse Resp BP BP BP 12/12/22 07:36 99.5 F 118 H 20 102/66 12/12/22 07:17 121 H 30 H 102/62 12/12/22 04:21 141 H 12/12/22 06:00 100.8 F H 133 H 22 96/58 L 12/12/22 04:15 12/12/22 04:15 102.9 F H 155 H 24 112/62 12/12/22 03:14 102.9 F H 144 H 28 H 126/53 L 12/12/22 02:30 131 H 27 H 12/12/22 02:21 137 H 12/12/22 02:00 12/12/22 01:30 117/95 12/12/22 01:00 145 H 18 163/77 H 12/12/22 00:44 139 H 29 H 149/56 H 12/12/22 00:30 135 H 25 H 12/12/22 00:49 103.1 F H 12/12/22 00:00 135 H 27 H 162/65 H 12/11/22 23:31 136 H 22 152/58 H 12/11/22 23:00 130/78 12/11/22 23:00 137 H 26 H 12/11/22 22:41 141 H 25 H 142/65 H 12/11/22 22:30 136 H 24 80/54 L 12/11/22 22:23 143 H 20 104/77 12/11/22 22:19 146 H 12/11/22 21:31 101.3 F H 151 H 18 132/79 Pulse Ox O2 Del Method 12/12/22 07:36 96 Room Air 12/12/22 07:17 12/12/22 04:21 12/12/22 06:00 95 Room Air 12/12/22 04:15 Room Air 12/12/22 04:15 99 Room Air 12/12/22 03:14 99 Room Air 12/12/22 02:30 98 Room Air 12/12/22 02:21 12/12/22 02:00 97 Room Air 12/12/22 01:30 96 Room Air 12/12/22 01:00 97 Room Air 12/12/22 00:44 96 Room Air 12/12/22 00:30 99 Room Air 12/12/22 00:49 12/12/22 00:00 98 Room Air 12/11/22 23:31 98 Room Air 12/11/22 23:00 12/11/22 23:00 99 12/11/22 22:41 96 12/11/22 22:30 97 12/11/22 22:23 96 12/11/22 22:19 12/11/22 21:31 99 Room Air
[2022-12-12 08:31] LABS: Hematocrit (blood only) 29.2 % (37.0-47.0); Hemoglobin 9.7 g/dl (12.0-16.0); Mean Corpuscular Hemoglobin 27.8 pg (25.0-34.0); Mean Corpuscular Hgb Conc 33.2 g/dL (32.0-36.0); Mean Corpuscular Volume 83.7 fL (80.0-100.0); Mean Platelet Volume 10.9 fL (9.4-12.4); Platelet Count 117 K/uL (130-400); RDW Coefficient of Variation 14.4 % (11.5-14.5); RDW Standard Deviation 43.4 fL (36.4-46.3); Red Blood Count 3.49 M/uL (4.20-5.40); White Blood Count 6.55 K/ul (4.8-10.8)
[2022-12-12 08:57] LABS: BUN Creatinine Ratio 8.3 (10-20); Calcium 8.3 mg/dl (8.6-10.3); Creatinine Clr Calc Pharmacy 207.9 ml/min; Est GFR (African American) 147.9 ml/min; Est GFR (Non-African American) 127.6 ml/min; Magnesium 1.5 mg/dl (1.7-2.4)
[2022-12-12] MEDS ORDERED: FAMOTIDINE 40 MG TABLET PO SCH (09:00)
[2022-12-12] MEDS ORDERED: POTASSIUM CHLORIDE CRTAB 20 MEQ TABCR PO STA ×2 (09:10→11:15)
[2022-12-12] MEDS: PRENATAL VITAMIN 1 TAB PO SCH (09:14)
[2022-12-12] MEDS: ENOXAPARIN INJ 40 MG/0.4 ML SYR SQ SCH ×2 (09:14→21:50)
[2022-12-12] MEDS: INSULIN ASPART PER UNIT CHARGE SC SCH ×4 (09:30→21:30)
[2022-12-12] MEDS: MAGNESIUM SULFATE / D5W 1 GM/100 ML BAG IV SCH ×2 (10:43→11:57)
[2022-12-12] MEDS: FAMOTIDINE 20 MG in SYRINGE 3 ML IV SCH ×2 (10:43→21:50)
[2022-12-12] MEDS ORDERED: ACETAMINOPHEN 1,000 MG/100 ML VIAL IV PRN (11:08)
--- NOTE | 2022-12-12 11:11 | Hospitalist Progress Note ---
Date of Service December 12, 2022 Assessment & Plan (1) COVID-19: Plan: 22yo female G1PO at 29+ weeks presenting with Covid-19 infection. Patient with persistent fever (max temp 39.5C overnight), tachycardia, nausea and po intolerance. Fortunately her saturations on room air are adequate - no hypoxia. Tx to telemetry for tachycardia/further monitoring -- sinus tachycardia on monitor. No CP reported Isolation precautions Monitor saturations - no need for Dexamethasone or Remdesivir at this time Supportive care with antiemetics with zofran, tylenol for pain/fever fever 38.6C this morning, likely from COVID changed tylenol to 1gm IV q8 as needed for control Incentive spirometer added to prevent PNA Will hold antibiotics for now until culture resulted - if greater that 10 x 5 CFU on culture would initiate antibiotic therapy for asymptomatic bacteriuria in . Messaged Dr Chapman of such to see if he would prefer to start empirically in the meantime. TEMPERATURE INSPECTOR rec holding off starting abx at present/monitor urine cx Added blood cultures given high temps for completeness, but suspect from COVID infection Mag 1.5 --> IV replacement ordered and monitor on repeat K 3.0 --> PO/IV replacement ordered. Tolerated PO and will cancel IV/order additional 40meq PO for total 60meq KCL and monitor labs on repeat Decreased IVF to 100cc/hr for now, can dc this evening if HRs improved/tolerating diet DVT prophylaxis w/ Lovenox Monitor labs on repeat (2) Gestational diabetes mellitus (GDM) affecting , antepartum: Plan: Patient with gestational DM. She is on NPH insulin at home - dose has been increasing, now on 40u qPM. She has not been eating much or tolerating PO. OZS=108 here -NPH 10u qHS -ISS -Goal fasting AM glucose of 90-95 and 1hr post-prandial <140 -Consider pharmacy consultation if blood sugars remain high -- most recent BSG 123 this morning (had not eaten much for breakfast given transfer to PCU) Monitor for elevations/need for consultation (3) : Plan: G1PO at 29 weeks. Ob consultation appreciated for monitoring -- patient reported good stress testing appreciate assistance/recs/following Ppx - Lovenox 40u BID for DVT prophylaxis - Covid + + BMI of 40.5 increased risk for DVT (4) Hypomagnesemia: Plan: suspected likely 2nd to poor PO intake, replacement as above/monitor level on repeat (5) Hypokalemia: Plan: suspected likely 2nd to poor PO intake, replacement as above/monitor level on repeat Plan continued inpatient stay Admission and Anticipated Discharge Date Admission Date: December 12, 2022 Supervising Physician Co-Signing Physician Notes The patient was not seen by me. The chart was reviewed. Case discussed with SOFIA Burk. Agree with assessment and plan Subjective BRIDGE NOTE: ADMITTED AFTER MIDNIGHT Eval this morning around 11am. Reports she didn't eat much for breakfast given the move to monitored bed but ordered lunch/dinner. Discussed if able to tolerate PO/HRs improving potentially discontinue later today. Reports headache this morning, improved with tylenol. Feeling like a truck hit her and initially thought she had another virus but then worsened cough/breathing and knew something else. Never had COVID in the past per patient. Did get initial vaccine series but never had any boosters. No hypoxia, but + cough/fevers. Changed tylenol to IV, also ordered pepcid IV BID and electrolyte replacement. She notes her HRs when they were in the 150/160s she could feel it but nothing further. Reports last time she got up to use bathroom she looked at her telemetry and it read 120s but she felt completely normal at that time. She states they did stress test on baby this morning which was "A+" and discussed continued monitoring. Questions/concerns addressed at this time. Physical Exam Physical Exam: General: WD/WN obese female sitting up in bed, NAD, occasional cough, 97% on room air HEENT; head normocephalic, atraumatic, mm slightly dry, trachea midline Resp: no tachypnea, occasional cough, fine crackles posterior lung martinez, no wheezing, 97% on room air CV: sinus tachycardia on monitor (rates 110-120s), no significant m/r/g, no pitting edema/calf tenderness GI: +BS, nontender Psych: AOx3, cooperative with exam Results & Data Results & Data Vital Signs (Past 12 Hours) Vital Signs Temp Pulse Pulse Resp BP BP BP 12/12/22 10:46 38.6 C H 127 H 18 119/77 12/12/22 07:36 37.5 C 118 H 20 102/66 12/12/22 07:17 121 H 30 H 102/62 12/12/22 04:21 141 H 12/12/22 06:00 38.2 C H 133 H 22 96/58 L 12/12/22 04:15 12/12/22 04:15 39.4 C H 155 H 24 112/62 12/12/22 03:14 39.4 C H 144 H 28 H 126/53 L 12/12/22 02:30 131 H 27 H 12/12/22 02:21 137 H 12/12/22 02:00 12/12/22 01:30 117/95 12/12/22 01:00 145 H 18 163/77 H 12/12/22 00:44 139 H 29 H 149/56 H 12/12/22 00:30 135 H 25 H 12/12/22 00:49 39.5 C H 12/12/22 00:00 135 H 27 H 162/65 H 12/11/22 23:31 136 H 22 152/58 H Pulse Ox O2 Del Method 12/12/22 10:46 97 Room Air 12/12/22 07:36 96 Room Air 12/12/22 07:17 12/12/22 04:21 12/12/22 06:00 95 Room Air 12/12/22 04:15 Room Air 12/12/22 04:15 99 Room Air 12/12/22 03:14 99 Room Air 12/12/22 02:30 98 Room Air 12/12/22 02:21 12/12/22 02:00 97 Room Air 12/12/22 01:30 96 Room Air 12/12/22 01:00 97 Room Air 12/12/22 00:44 96 Room Air 12/12/22 00:30 99 Room Air 12/12/22 00:49 12/12/22 00:00 98 Room Air 12/11/22 23:31 98 Room Air Laboratory Results 12/12/22 12/12/22 12/12/22 Range/Units 07:48 07:48 07:32 WBC 6.55 (4.8-10.8) K/ul RBC 3.49 L (4.20-5.40) M/uL Hgb 9.7 L (12.0-16.0) g/dl Hct 29.2 L (37.0-47.0) % MCV 83.7 (80.0-100.0) fL MCH 27.8 (25.0-34.0) pg MCHC 33.2 (32.0-36.0) g/dL RDW Std Deviation 43.4 (36.4-46.3) fL RDW Coeff of Ryan 14.4 (11.5-14.5) % Plt Count 117 L (130-400) K/uL MPV 10.9 (9.4-12.4) fL Immature Gran % (Auto) % Neut % (Auto) % Lymph % (Auto) % [place] % (Auto) % Eos % (Auto) % Baso % (Auto) % Neut # (Auto) (1.40-6.50) K/uL Lymph # (Auto) (1.20-3.40) K/uL [place] # (Auto) (0.11-0.59) K/uL Eos # (Auto) (0.00-0.50) K/uL Baso # (Auto) (0.00-0.20) K/uL Immature Gran # (Auto) (0.01-0.20) K/uL Sodium 135 L (136-145) mmol/L Potassium 3.0 L (3.5-5.1) mmol/L Chloride 108 H (98-107) mmol/L Carbon Dioxide 18 L (21-32) mmol/L Anion Gap 9 (3-11) BUN 5 L (6-23) mg/dl Creatinine 0.60 (0.6-1.2) mg/dl Est Cr Clr Drug Dosing 207.9 ml/min Est GFR ( Amer) 147.9 ml/min Est GFR (Non-Af Amer) 127.6 ml/min BUN/Creatinine Ratio 8.3 L (10-20) Glucose 112 H (70-99(Fasting)) mg/dl POC Glucose 123 H (70-99) mg/dl Calcium 8.3 L (8.6-10.3) mg/dl Magnesium 1.5 L (1.7-2.4) mg/dl Total Bilirubin (0.2-1.0) mg/dl AST (13-39) U/L ALT (7-52) U/L Alkaline Phosphatase (34-104) U/L Total Protein (6.0-8.3) gm/dl Albumin (3.4-5.0) gm/dl Globulin (2.5-4.0) gm/dl Albumin/Globulin Ratio (0.9-2) Lipase (11-82) U/L TSH (0.300-4.500) uIu/ml Urine Color Urine Appearance (Clear) Urine pH (4.5-7.5) Ur Specific [place] (1.000-1.030) Urine Protein (Negative) Urine Glucose (UA) (Negative) Urine Ketones (Negative) Urine Blood (Negative) Urine Nitrite (Negative) Urine Bilirubin (Negative) Urine Urobilinogen (Negative) Ur Leukocyte Esterase (Negative) Urine WBC (Auto) (0-5) /hpf Urine RBC (Auto) (0-4) /hpf U Hyaline Cast (Auto) (0-5) /lpf U Epithel Cells (Auto) (0-5) /lpf Urine Bacteria (Auto) (Negative) Urine Crystals Calcium Oxalate Crystal (None Prsent) Adenovirus (PCR) (NotDetected) B. pertussis DNA (PCR) (NotDetected) B.parapertussis DNA PCR (NotDetected) C. pneumoniae DNA (PCR) (NotDetected) Coronavirus OC43 (PCR) (NotDetected) Coronavirus HKU1 (PCR) (NotDetected) Coronavirus 229E (PCR) (NotDetected) SARS-CoV-2 (PCR) (NotDetected) Coronavirus NL63 (PCR) (NotDetected) Human Metapneumovir PCR (NotDetected) Influenza Type A (PCR) (NotDetected) Influenza Type B (PCR) (NotDetected) M. pneumoniae (PCR) (NotDetected) Parainfluenza 1 (PCR) (NotDetected) Parainfluenza 2 (PCR) (NotDetected) Parainfluenza 3 (PCR) (NotDetected) Parainfluenza 4 (PCR) (NotDetected) RSV (PCR) (NotDetected) Entero/Rhino (PCR) (NotDetected) 12/12/22 12/11/22 12/11/22 Range/Units 00:44 23:15 22:00 WBC (4.8-10.8) K/ul RBC (4.20-5.40) M/uL Hgb (12.0-16.0) g/dl Hct (37.0-47.0) % MCV (80.0-100.0) fL MCH (25.0-34.0) pg MCHC (32.0-36.0) g/dL RDW Std Deviation (36.4-46.3) fL RDW Coeff of Ryan (11.5-14.5) % Plt Count (130-400) K/uL MPV (9.4-12.4) fL Immature Gran % (Auto) % Neut % (Auto) % Lymph % (Auto) % [place] % (Auto) % Eos % (Auto) % Baso % (Auto) % Neut # (Auto) (1.40-6.50) K/uL Lymph # (Auto) (1.20-3.40) K/uL [place] # (Auto) (0.11-0.59) K/uL Eos # (Auto) (0.00-0.50) K/uL Baso # (Auto) (0.00-0.20) K/uL Immature Gran # (Auto) (0.01-0.20) K/uL Sodium (136-145) mmol/L Potassium (3.5-5.1) mmol/L Chloride (98-107) mmol/L Carbon Dioxide (21-32) mmol/L Anion Gap (3-11) BUN (6-23) mg/dl Creatinine (0.6-1.2) mg/dl Est Cr Clr Drug Dosing ml/min Est GFR ( Amer) ml/min Est GFR (Non-Af Amer) ml/min BUN/Creatinine Ratio (10-20) Glucose (70-99(Fasting)) mg/dl POC Glucose (70-99) mg/dl Calcium (8.6-10.3) mg/dl Magnesium (1.7-2.4) mg/dl Total Bilirubin (0.2-1.0) mg/dl AST (13-39) U/L ALT (7-52) U/L Alkaline Phosphatase (34-104) U/L Total Protein (6.0-8.3) gm/dl Albumin (3.4-5.0) gm/dl Globulin (2.5-4.0) gm/dl Albumin/Globulin Ratio (0.9-2) Lipase (11-82) U/L TSH 0.488 (0.300-4.500) uIu/ml Urine Color Dark Yellow Urine Appearance Cloudy A (Clear) Urine pH 6.0 (4.5-7.5) Ur Specific [place] 1.022 (1.000-1.030) Urine Protein Trace H (Negative) Urine Glucose (UA) Negative (Negative) Urine Ketones 2+ H (Negative) Urine Blood Negative (Negative) Urine Nitrite Negative (Negative) Urine Bilirubin Negative (Negative) Urine Urobilinogen Negative (Negative) Ur Leukocyte Esterase 1+ H (Negative) Urine WBC (Auto) 10-30 H (0-5) /hpf Urine RBC (Auto) 0-4 (0-4) /hpf U Hyaline Cast (Auto) 1-5 (0-5) /lpf U Epithel Cells (Auto) >30 H (0-5) /lpf Urine Bacteria (Auto) 1+ H (Negative) Urine Crystals Not Reportable Calcium Oxalate Crystal Present A (None Prsent) Adenovirus (PCR) Not Detected (NotDetected) B. pertussis DNA (PCR) Not Detected (NotDetected) B.parapertussis DNA PCR Not Detected (NotDetected) C. pneumoniae DNA (PCR) Not Detected (NotDetected) Coronavirus OC43 (PCR) Not Detected (NotDetected) Coronavirus HKU1 (PCR) Not Detected (NotDetected) Coronavirus 229E (PCR) Not Detected (NotDetected) SARS-CoV-2 (PCR) DETECTED A* (NotDetected) Coronavirus NL63 (PCR) Not Detected (NotDetected) Human Metapneumovir PCR Not Detected (NotDetected) Influenza Type A (PCR) Not Detected (NotDetected) Influenza Type B (PCR) Not Detected (NotDetected) M. pneumoniae (PCR) Not Detected (NotDetected) Parainfluenza 1 (PCR) Not Detected (NotDetected) Parainfluenza 2 (PCR) Not Detected (NotDetected) Parainfluenza 3 (PCR) Not Detected (NotDetected) Parainfluenza 4 (PCR) Not Detected (NotDetected) RSV (PCR) Not Detected (NotDetected) Entero/Rhino (PCR) Not Detected (NotDetected) 12/11/22 12/11/22 Range/Units 22:00 22:00 WBC 9.54 (4.8-10.8) K/ul RBC 4.30 (4.20-5.40) M/uL Hgb 12.1 (12.0-16.0) g/dl Hct 35.1 L (37.0-47.0) % MCV 81.6 (80.0-100.0) fL MCH 28.1 (25.0-34.0) pg MCHC 34.5 (32.0-36.0) g/dL RDW Std Deviation 41.1 (36.4-46.3) fL RDW Coeff of Ryan 14.2 (11.5-14.5) % Plt Count 154 (130-400) K/uL MPV 10.9 (9.4-12.4) fL Immature Gran % (Auto) 0.6 % Neut % (Auto) 91.3 % Lymph % (Auto) 3.4 % [place] % (Auto) 4.2 % Eos % (Auto) 0.2 % Baso % (Auto) 0.3 % Neut # (Auto) 8.71 H (1.40-6.50) K/uL Lymph # (Auto) 0.32 L (1.20-3.40) K/uL [place] # (Auto) 0.40 (0.11-0.59) K/uL Eos # (Auto) 0.02 (0.00-0.50) K/uL Baso # (Auto) 0.03 (0.00-0.20) K/uL Immature Gran # (Auto) 0.06 (0.01-0.20) K/uL Sodium 136 (136-145) mmol/L Potassium 3.6 (3.5-5.1) mmol/L Chloride 107 (98-107) mmol/L Carbon Dioxide 19 L (21-32) mmol/L Anion Gap 10 (3-11) BUN 6 (6-23) mg/dl Creatinine 0.63 (0.6-1.2) mg/dl Est Cr Clr Drug Dosing 200.7 ml/min Est GFR ( Amer) 145.5 ml/min Est GFR (Non-Af Amer) 125.5 ml/min BUN/Creatinine Ratio 9.5 L (10-20) Glucose 106 H (70-99(Fasting)) mg/dl POC Glucose (70-99) mg/dl Calcium 9.2 (8.6-10.3) mg/dl Magnesium 1.7 (1.7-2.4) mg/dl Total Bilirubin 0.3 (0.2-1.0) mg/dl AST 35 (13-39) U/L ALT 33 (7-52) U/L Alkaline Phosphatase 81 (34-104) U/L Total Protein 7.3 (6.0-8.3) gm/dl Albumin 3.8 (3.4-5.0) gm/dl Globulin 3.5 (2.5-4.0) gm/dl Albumin/Globulin Ratio 1.1 (0.9-2) Lipase 26 (11-82) U/L TSH (0.300-4.500) uIu/ml Urine Color Urine Appearance (Clear) Urine pH (4.5-7.5) Ur Specific [place] (1.000-1.030) Urine Protein (Negative) Urine Glucose (UA) (Negative) Urine Ketones (Negative) Urine Blood (Negative) Urine Nitrite (Negative) Urine Bilirubin (Negative) Urine Urobilinogen (Negative) Ur Leukocyte Esterase (Negative) Urine WBC (Auto) (0-5) /hpf Urine RBC (Auto) (0-4) /hpf U Hyaline Cast (Auto) (0-5) /lpf U Epithel Cells (Auto) (0-5) /lpf Urine Bacteria (Auto) (Negative) Urine Crystals Calcium Oxalate Crystal (None Prsent) Adenovirus (PCR) (NotDetected) B. pertussis DNA (PCR) (NotDetected) B.parapertussis DNA PCR (NotDetected) C. pneumoniae DNA (PCR) (NotDetected) Coronavirus OC43 (PCR) (NotDetected) Coronavirus HKU1 (PCR) (NotDetected) Coronavirus 229E (PCR) (NotDetected) SARS-CoV-2 (PCR) (NotDetected) Coronavirus NL63 (PCR) (NotDetected) Human Metapneumovir PCR (NotDetected) Influenza Type A (PCR) (NotDetected) Influenza Type B (PCR) (NotDetected) M. pneumoniae (PCR) (NotDetected) Parainfluenza 1 (PCR) (NotDetected) Parainfluenza 2 (PCR) (NotDetected) Parainfluenza 3 (PCR) (NotDetected) Parainfluenza 4 (PCR) (NotDetected) RSV (PCR) (NotDetected) Entero/Rhino (PCR) (NotDetected) Diagnostic Findings Chest X-Ray 12/11/22 22:21 XR chest 1V portable CLINICAL HISTORY: Fever. COMPARISON STUDY: Chest radiograph July 07, 2016. FINDINGS: Lung volumes are normal. Lungs are clear. There is no pneumothorax or pleural effusion. Cardiac size is normal. Mediastinal contours are normal. There is no evidence for pulmonary edema. IMPRESSION: No acute cardiopulmonary findings. ACT 112: Negative or not required by law. Electronically signed by: Abraham Gandhi M.D. 12/12/2022 6:48 AM PG Care Time/CCT Total # of Minutes Spent Total Time Spent with Patient: Total time spent is greater than 50% in coordination of care (as documented) at patient's floor/unit and/or counseling patient: Coding Level of Care Code None Diagnoses COVID-19 U07.1 Gestational diabetes mellitus (GDM) affecting , antepartum O24.419 Z34.90 Hypomagnesemia E83.42 Hypokalemia E87.6
[2022-12-12] MEDS: POTASSIUM CHLORIDE / WTR 10 MEQ/100 ML PLCT IV SCH ×2 (11:30→11:33)
[2022-12-12] MEDS: ONDANSETRON INJ 2 MG/ML 2 ML VIAL IV PRN ×2 (12:12→22:10)
--- NOTE | 2022-12-12 16:19 | Electrocardiogram Report ---
Test Reason : Blood Pressure : / mmHG Vent. Rate : 135 BPM Atrial Rate : 135 BPM P-R Int : 096 ms QRS Dur : 086 ms QT Int : 380 ms P-R-T Axes : 000 048 057 degrees QTc Int : 570 ms Sinus tachycardia Nonspecific ST and T wave abnormality Abnormal ECG No previous ECGs available Confirmed by Scot Puentes [id number]) on 12/12/2022 4:19:17 PM Referred By: REFERRED SELF Confirmed By:Scot Puentes
[2022-12-12] MEDS ORDERED: INSULIN HUMAN NPH SC SCH (21:00)
[2022-12-12] MEDS ORDERED: SODIUM CHLORIDE 0.9% 1000ML 1,000 ML IV SCH (21:00)
[2022-12-13 07:11] LABS: Basophils # (auto) 0.03 K/uL (0.00-0.20); Basophils % (auto) 0.7 %; Eosinophils # (auto) 0.02 K/uL (0.00-0.50); Eosinophils % (auto) 0.4 %; Hemoglobin 10.3 g/dl (12.0-16.0); Immature Granulocytes # (auto) 0.05 K/uL (0.01-0.20); Immature Granulocytes % (auto) 1.1 %; Lymphocytes % (auto) 19.6 %; Mean Corpuscular Hemoglobin 27.5 pg (25.0-34.0); Mean Corpuscular Hgb Conc 33.2 g/dL (32.0-36.0); Mean Corpuscular Volume 82.9 fL (80.0-100.0); Mean Platelet Volume 10.7 fL (9.4-12.4); Monocytes # (auto) 0.43 K/uL (0.11-0.59); Monocytes % (auto) 9.4 %; Neutrophils # (auto) 3.16 K/uL (1.40-6.50); Neutrophils % (auto) 68.8 %; Platelet Count 112 K/uL (130-400); RDW Coefficient of Variation 14.8 % (11.5-14.5); Red Blood Count 3.74 M/uL (4.20-5.40); White Blood Count 4.59 K/ul (4.8-10.8)
[2022-12-13 07:49] LABS: Anion Gap 9 (3-11); BUN Creatinine Ratio 10.6 (10-20); Blood Urea Nitrogen 5 mg/dl (6-23); Calcium 8.6 mg/dl (8.6-10.3); Carbon Dioxide 20 mmol/L (21-32); Chloride 109 mmol/L (98-107); Creatinine Clr Calc Pharmacy 265.4 ml/min; Est GFR (African American) > 150.0 ml/min; Est GFR (Non-African American) 138.3 ml/min; Glucose 99 mg/dl (70-99(Fasting)); Magnesium 1.7 mg/dl (1.7-2.4); Potassium 3.4 mmol/L (3.5-5.1); Sodium 138 mmol/L (136-145)
[2022-12-13] MEDS ORDERED: POTASSIUM CHLORIDE CRTAB 20 MEQ TABCR PO STA (07:50)
[2022-12-13] MEDS ORDERED: MAGNESIUM SULFATE / D5W 1 GM/100 ML BAG IV ONE (07:50)
--- NOTE | 2022-12-13 07:53 | Hospitalist Progress Note ---
Date of Service December 13, 2022 Assessment & Plan (1) COVID-19: Plan: 22yo female G1PO at 29+ weeks presenting with Covid-19 infection. Patient with persistent fever (max temp 39.5C overnight), tachycardia, nausea and po intolerance. Fortunately her saturations on room air are adequate - no hypoxia. Tx to telemetry for tachycardia/further monitoring -- sinus tachycardia on monitor. No CP reported Isolation precautions Monitor saturations - no need for Dexamethasone or Remdesivir at this time Supportive care with antiemetics with zofran, tylenol for pain/fever fever 38.6C this morning, likely from COVID changed tylenol to 1gm IV q8 as needed for control Incentive spirometer added to prevent PNA Will hold antibiotics for now until culture resulted - if greater that 10 x 5 CFU on culture would initiate antibiotic therapy for asymptomatic bacteriuria in . Messaged Dr Chapman of such to see if he would prefer to start empirically in the meantime. SITE DIRECTOR rec holding off starting abx at present/monitor urine cx Added blood cultures given high temps for completeness, but suspect from COVID infection Mag 1.5 --> IV replacement ordered and monitor on repeat K 3.0 --> PO/IV replacement ordered. Tolerated PO and will cancel IV/order additional 40meq PO for total 60meq KCL and monitor labs on repeat Decreased IVF to 100cc/hr for now, can dc this evening if HRs improved/tolerating diet DVT prophylaxis w/ Lovenox Monitor labs on repeat 12/13 - IVF restarted overnight @ 75cc/hr given continued more PO intake. K 3.4 this morning, additional 20meq PO x 1. Mag 1.7 on repeat. RN provided incentive spirometer HRs improving, 90s on VSS this morning SpO2 95% on room air (2) Gestational diabetes mellitus (GDM) affecting , antepartum: Plan: Patient with gestational DM. She is on NPH insulin at home - dose has been increasing, now on 40u qPM. She has not been eating much or tolerating PO. OAT=625 here -NPH 10u qHS -ISS -Goal fasting AM glucose of 90-95 and 1hr post-prandial <140 -Consider pharmacy consultation if blood sugars remain high -- most recent BSG 123 this morning (had not eaten much for breakfast given transfer to PCU) Monitor for elevations/need for consultation (3) : Plan: G1PO at 29 weeks. Ob consultation appreciated for monitoring -- patient reported good stress testing appreciate assistance/recs/following Ppx - Lovenox 40u BID for DVT prophylaxis - Covid + + BMI of 40.5 increased risk for DVT (4) Hypomagnesemia: Plan: suspected likely 2nd to poor PO intake, replacement as above/monitor level on repeat (5) Hypokalemia: Plan: suspected likely 2nd to poor PO intake, replacement as above/monitor level on repeat Plan continued inpatient stay Admission and Anticipated Discharge Date Admission Date: December 12, 2022 Results & Data Results & Data Vital Signs (Past 12 Hours) Vital Signs Temp Pulse Pulse Resp BP Pulse Ox O2 Del Method 12/13/22 07:38 36.6 C 97 H 18 101/66 95 Room Air 12/13/22 03:00 113 H 12/13/22 02:40 36.6 C 100 H 18 116/76 95 Room Air 12/12/22 21:45 Room Air 12/12/22 22:34 36.6 C 113 H 20 100/61 96 Room Air PG Care Time/CCT Total # of Minutes Spent Total Time Spent with Patient: Total time spent is greater than 50% in coordination of care (as documented) at patient's floor/unit and/or counseling patient: Coding Diagnoses COVID-19 U07.1 Gestational diabetes mellitus (GDM) affecting , antepartum O24.419 Z34.90 Hypomagnesemia E83.42 Hypokalemia E87.6
[2022-12-13] MEDS: INSULIN ASPART PER UNIT CHARGE SC SCH (08:04)
[2022-12-13] MEDS: PRENATAL VITAMIN 1 TAB PO SCH (08:24)
[2022-12-13] MEDS: FAMOTIDINE 20 MG in SYRINGE 3 ML IV SCH (08:24)
[2022-12-13] MEDS: ENOXAPARIN INJ 40 MG/0.4 ML SYR SQ SCH (08:26)
--- NOTE | 2022-12-13 10:42 | Discharge Summary ---
Date of Service December 13, 2022 Admission HPI Per Admitting Provider Martita Heredia is a pleasant 22yo female at 29weeks gestation presenting with Covid-19 infection. Patient reports waking yesterday morning 12/11/22 around 02:00 with shaking chills and fever. She has had continued fever throughout the day which is minimally responsive to Tylenol. Also with persistent nausea with multiple episodes on non-bloody/non-bilious emesis, PO intolerance - only able to drink a small amount of alejo analilia today. She does feel slightly short of breath when her fever is high, otherwise denies cough, chest pain or shortness of breath. No complaint of diarrhea. Patient received 2 Covid-19 vaccines. To her knowledge has never had Covid-19 before. In regards to her - she has gestational diabetes. She is taking NPH insulin qHS and has been increasing her dosage because her AM blood sugars remain uncontrolled. She is presently on 40u qPM. She reports fairly consistent nausea throughout the as well as a new baseline heart rate of 100 - 120. She denies bleeding, spotting, discharge or cramping. Denies edema, visual changes. She reports movements but feels that the baby is slightly less active today than usual. No additional complaints. 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, anicteric sclera, conjunctiva without injection, external ear normal to inspection and nontender, nares patent, moist mucus membranes, dentition intact, no oropharyngeal lesions, neck supple, trachea midline, no LAD, no thyromegaly, no JVD Heart: +S1/S2, regular, tachycardic, no m/r/g Lungs: equal air entry bilaterally, no rales/rhonchi/wheezes Abd: +BS, soft, NT/ND, gravid uterus Ext: warm, 2+ pulses in UE/LE bilaterally, no clubbing/cyanosis or edema Neuro: nonfocal, patient AA&O x 4, speech intact, no facial droop, moving all extremities on command with equal strength 5/5 Principal Diagnosis COVID-19 Discharge Exam General: WD/WN obese female sitting up in bed, NAD, decreased cough, 95% on RA HEENT; head normocephalic, atraumatic, mmm, trachea midline Resp: no tachypnea, occasional cough much improved, no wheezing/crackles, on room air CV: NSR/Sinus tachycardia on monitor but rates much improved (90s during exam), no significant m/r/g, trace pedal edema, calves nontender bilaterally GI: +BS, nontender, +fundal height c/w gestational age Psych: AOx3, cooperative with exam, requesting to go home if possible Discharge Data Allergies Allergy/AdvReac Type Severity Reaction Status Date / Time morphine AdvReac Severe GI UPSET Verified 11/03/22 08:21 Consultations 12/12/22 01:13 ED Decision to Admit Stat 12/12/22 03:13 Consult Obstetrics Routine Procedures Performed Chest X-Ray 12/11/22 22:21 XR chest 1V portable CLINICAL HISTORY: Fever. COMPARISON STUDY: Chest radiograph July 07, 2016. FINDINGS: Lung volumes are normal. Lungs are clear. There is no pneumothorax or pleural effusion. Cardiac size is normal. Mediastinal contours are normal. There is no evidence for pulmonary edema. IMPRESSION: No acute cardiopulmonary findings. ACT 112: Negative or not required by law. Electronically signed by: Abraham Gandhi M.D. 12/12/2022 6:48 AM Hospital Course (1) COVID-19: 22yo female G1PO at 29+ weeks presenting with Covid-19 infection. Patient with persistent fever (max temp 39.5C overnight), tachycardia, nausea and po intolerance starting on Fortunately her saturations on room air are adequate without any hypoxia/saturations <95% Placed on isolation during inpatient stay, transferred to telemetry for tachycardia/fevers. IVF provided, diet as tolerated Tylenol changed to 1g IV q8h with significant improvement in symptoms/fever, last fever 38.6C morning of 12/12, nothing since. Blood cultures NGTD, no leukocytosis or other infectious symptoms reported Incentive spirometer provided and encouraged UA w/ bacteria, however cx normal jeimy. No abx req per prior discussion w/ PERSONAL INJURY LEGAL ASSISTANT Mag/K replacement, K improving on labs and additional PO provided. Mag wnl on repeat. Patient evaluated AM 12/13, feeling much improved, drinking lots of fluids, IVF to be discontinued. Fevers impoving and no hypoxia and hoping to go home as inpatient food choices different than at home and feeling more comfortable at home. Call to ER for home pack for COVID w/ pulse ox/thermometer provided and patient to monitor for any hypoxia/worsening symptoms to return to ER. DIscussed isoltation continuation at d/c until criteria met. She is to call PERSONAL INJURY LEGAL ASSISTANT office on Thursday about rescheduling her follow up appt. Discussed continued Tylenol use at discharge for fever/pain/symptom control as needed DVT prophylaxis while inpatient given with Lovenox SQ BID (2) Gestational diabetes mellitus (GDM) affecting , antepartum: Patient with gestational DM, on NPH insulin at home with increasing dose most recently 40u HS with intolerance of PO and was decreased while inpatient/SSI and discussed continued monitoring at discharge given diet/PO tolerance improving (3) : G1PO at 29 weeks. Ob consultation appreciated for monitoring -- patient reported good stress testing. Discussed w/ PERSONAL INJURY LEGAL ASSISTANT and no contraindications for dc from their standpoint Outpatient f/u Ppx - Lovenox 40u BID for DVT prophylaxis - Covid + + BMI of 40.5 increased risk for DVT (4) Hypomagnesemia: suspected likely 2nd to poor PO intake, replacement as above and improving/stable on repeat. (5) Hypokalemia: suspected likely 2nd to poor PO intake, replacement ordered and improving, diet improving. Additional replacement prior to dc and encouraged supplements//gatorade at discharge as well to ensure adequate hydration Plan discharged home, no hypoxia/need for covid medications. continue tylenol/monitoring for hypoxia outpatient f/u PERSONAL INJURY LEGAL ASSISTANT Total Time Total Time Spent Total Time Spent (In Minutes): 45 Discharge Plan Discharge Items Patient Disposition: Home - Self-Care Reason For Visit: COVID-19, INTRACTABLE NAUSEA Discharge Diagnosis: COVID-19 Goals: You have been hospitalized for an acute medical problem. During your stay at [facility], we have made an effort to correct the problem that brought you to the hospital while keeping you as comfortable as possible. Medications were used to bring your condition under control and your discharge instructions will include directions for any medications you should take after leaving the hospital. Please make sure you see your Primary Care Provider as part of your follow up plan. Activity: As commented below Non-emergency contact: Primary Care Provider and Slide Maker Call non-emergency contact if: you have any medication questions, your symptoms worsen, your pain is not controlled, your pain is worsening, your pain is unusual for you and your pain is concerning for you Follow-up/Referrals: Ivonne Hooks MD [Physician] - William Robertson DO [Primary Care Provider] - 12/23/22 1:00 pm Diet: Carb Consistent or DM2 Addtl Attending Provider Instructions: You have been hospitalized for COVID-19 infection. Thankfully no evidence for bacterial pneumonia or hypoxia. You were treated with supportive care with IV fluids, electrolyte replacement and IV tylenol for pain/fever. Your oxygen levels have remained stable and you are being sent home with a device to measure your oxygen levels. Please monitor and return to the ER with any worseing shortness of breath/palpitations, or oxygen levels less than 94% as you may require treatment but hopefully this will not occur. Continue tylenol around the clock for the next 24 hours and then you can use as needed for fever. Please isolation at discharge. Guidelines to discontinue isolation are at least 10 days since symptoms first appeared and at least one day passed since resolution of fever WITHOUT the need for fever-reducing medications, and improvement in symptoms of cough/shortness of breath. PERSONAL INJURY LEGAL ASSISTANT was consulted and stress testing for baby was stable. You are to call their office on Thursday to speak with a nurse about rescheduling your follow up appointment. Please follow up with primary care and PERSONAL INJURY LEGAL ASSISTANT as discussed after discharge to monitor your progress. Please again return to the ER with any low oxygen levels, chest pain, shortness of breath, or for any other symptoms concerning for you. It has been a pleasure being a part of the medical team providing for you while you have been in the hospital. Take care! Pending Studies at Discharge: Yes Studies:: blood cultures -- no growth to date Stand-Alone Forms: My Zily[employer], Smoking Cessation Medications and DC Order Prescriptions: New acetaminophen 500 mg capsule 1,000 mg PO Q8H PRN (Reason: pain or fever) Qty: 10 0RF Continued (DME) Ketone Urine Test Strip See Rx Instructions .MEDSUPPLY Qty: 50 2RF Rx Instructions: As directed (DME) OneTouch Verio test strips Strip See Rx Instructions .MEDSUPPLY Qty: 150 2RF Rx Instructions: check blood sugars 4 times a day (DME) blood-glucose meter [OneTouch Verio Reflect Meter] Misc See Rx Instructions miscellaneous .MEDSUPPLY Qty: 1 0RF Rx Instructions: As directed Humulin N NPH Insulin KwikPen 100 unit/mL (3 mL) insulin pen 10 unit subcut QPM Qty: 15 3RF Rx Instructions: Inject 10 units at bed time; increase by 5 units every other night; TDD up to 50 units (DME) lancets 33 gauge misc See Rx Instructions .MEDSUPPLY Qty: 150 2RF Rx Instructions: As directed check blood sugars 4 times a day (DME) pen needle, diabetic [BD Ultra-Fine Jill Pen Needle] 32 gauge x 5/32" needle See Rx Instructions miscellaneous .MEDSUPPLY Qty: 100 2RF Rx Instructions: As directed PNV cmb#95-ferrous fumarate-FA [] 28 mg iron- 800 mcg Tablet 1 tab PO DAILY Discharge Orders: Discharge Order (Routine); Ordered 12/13/22 Ordered By: Jody Shah Admission Data Admit Date/Time: 12/12/22 01:18 Attending Provider: Rob Ashraf Admit Provider: Nicolle Lamar Primary Care Provider: William Robertson Other Providers: Nicolle Lamar ; Vish Reinoso Other Interventions: Discharge Summary Assessment (RN) Last Done: 12/13/22 10:54 Supervising Physician Co-Signing Physician Notes The patient was not seen by me. The chart was reviewed. Case discussed with SOFIA Burk. Agree with assessment and plan Coding Level of Care Code 88226 INP/OBS DISCH >30 MIN Diagnoses COVID-19 U07.1 Gestational diabetes mellitus (GDM) affecting , antepartum O24.419 Z34.90 Hypomagnesemia E83.42 Hypokalemia E87.6
== END 2022-12-13 11:40 | disposition home or self-care (01) | DRG 831 ==
LOC: ED 21:19 → 3E 12-12 01:18 → INTOOBSV 12-12 01:18 → SUATTDRO 12-12 01:18 → 2S 12-12 02:57

== ENCOUNTER 2023-02-13 16:56 | Inpatient (IN) ==
--- NOTE | 2023-02-13 17:53 | Labor Progress Brief Note ---
Date of Service February 13, 2023 Subjective 22yo at 38w3d, seen in office today for routine care, and sent to L&D for prolonged monitoring. NST today with moderate variability and normal baseline, but nonreactive, and several 15x15 variable decels captured. Patient feels baby is moving but perhaps slightly less than is typical. She has no ctx, no LOF, no VB. Assessment & Plan (1) Polyhydramnios: Plan: Patient with multiple comorbidities, 38+ weeks gestation. No medical indications for delivery <39wk GA so far. Earlier FHT today were rather flat, but now nicely reactive. One BP value on admit was just barely HTN range, now have normalized. A similar situation occurred earlier in when patient was seen at another hospital, with one HTN value and then normalization, so she has never been diagnosed with gHTN and still does not meet criteria. Will check preeclampsia labs and also a biophysical profile to be as certain as possible that it is safe for patient to remain . She is currently planning IOL in the 39+ week range, and has declined recommendation for 1'CS due to LGA in the setting of GDM. (2) Insulin controlled gestational diabetes mellitus (GDM) during : (3) Obesity affecting , antepartum: Physical Exam Physical Exam: Obese habitus, no distress Disconjugate gaze, chronic / not new. No resp distress, speaking fluidly Trace edema bilaterally Cervix not examined upon arrival to L&D FHT 135 mod malu +acc -dec as of 1751pm [place] quiet Results & Data Vital Signs (Past 12 Hours) Vital Signs Pulse BP 02/13/23 17:03 91 H 142/88 H Coding Level of Care Code None Diagnoses Polyhydramnios O40.9XX0 Insulin controlled gestational diabetes mellitus (GDM) during O24.414 Obesity affecting , antepartum O99.210
[2023-02-13 18:21] LABS: Basophils # (auto) 0.04 K/uL (0.00-0.20); Basophils % (auto) 0.4 %; Eosinophils # (auto) 0.23 K/uL (0.00-0.50); Eosinophils % (auto) 2.4 %; Hematocrit (blood only) 39.4 % (37.0-47.0); Immature Granulocytes # (auto) 0.03 K/uL (0.01-0.20); Immature Granulocytes % (auto) 0.3 %; Lymphocytes # (auto) 2.13 K/uL (1.20-3.40); Lymphocytes % (auto) 22.5 %; Mean Corpuscular Hemoglobin 27.4 pg (25.0-34.0); Mean Corpuscular Volume 82.9 fL (80.0-100.0); Mean Platelet Volume 11.4 fL (9.4-12.4); Monocytes # (auto) 0.75 K/uL (0.11-0.59); Monocytes % (auto) 7.9 %; Neutrophils # (auto) 6.27 K/uL (1.40-6.50); Neutrophils % (auto) 66.5 %; Platelet Count 190 K/uL (130-400); RDW Coefficient of Variation 14.7 % (11.5-14.5); RDW Standard Deviation 43.5 fL (36.4-46.3); Red Blood Count 4.75 M/uL (4.20-5.40); White Blood Count 9.45 K/ul (4.8-10.8)
[2023-02-13 18:39] LABS: Albumin Globulin Ratio 0.9 (0.9-2); Albumin Level 3.5 gm/dl (3.4-5.0); BUN Creatinine Ratio 17.4 (10-20); Bilirubin,Total 0.3 mg/dl (0.2-1.0); Calcium 9.2 mg/dl (8.6-10.3); Creatinine Clr Calc Pharmacy 188.2 ml/min; Est GFR (African American) 141.2 ml/min; Est GFR (Non-African American) 121.8 ml/min; Globulin 3.7 gm/dl (2.5-4.0); Potassium 3.9 mmol/L (3.5-5.1); Total Protein 7.2 gm/dl (6.0-8.3)
[2023-02-13 18:55] LABS: Creatinine Urine Random 180.6 mg/dl; Protein Creatinine Ratio Urine 0.2 (0-0.2); Total Protein Urine Random 29.6 mg/dl (0-11.9)
--- NOTE | 2023-02-13 20:27 | Ultrasound Report ---
Exam(s): US BIOPHYSICAL PROFILE EXAM: US Biophysical Profile Without Non-Stress Testing CLINICAL HISTORY: Decreased movement. TECHNIQUE: Real-time ultrasound of the maternal pelvis for biophysical profile evaluation with image documentation. COMPARISON: No relevant prior studies available. FINDINGS: breathing movements: No breathing movement is noted. Score 0/2. Biophysical profile score 6/8. No points were given due to lack of breathing movement. Gross body movements: Present. Score 2/2. tone: Present. Score 2/2. Qualitative amniotic fluid volume: JORGE is normal measuring 20.1 cm. Score 2/2. Placenta: Anterior placenta is within normal limits for gestational age. Fetus: Single living intrauterine gestation. Heart rate: heart tones of 141 bpm. IMPRESSION: 1. Single living intrauterine gestation. 2. Biophysical profile score 6/8. No points were given due to lack of breathing movement. Communications: Verify Receipt Electronically signed by: Ladan Nieto MD 02/13/23 20:26 PM
[2023-02-13] MEDS ORDERED: OXYTOCIN 30 UNITS/500 ML BAG IV PRN ×2 (20:39)
[2023-02-13] MEDS ORDERED: LIDOCAINE 1% LOCAL 20 ML VIAL INFIL PRN (20:39)
--- NOTE | 2023-02-13 20:39 | Labor Progress Brief Note ---
Date of Service February 13, 2023 Subjective Patient feeling well, no c/o at this time. Good FM, no LOF, no VB, no Ctx. FOB at bedside. Assessment & Plan (1) Insulin controlled gestational diabetes mellitus (GDM) during : Plan: Obesity, A2GDM, LGA of a size that has led to discussions about 1'CS as a recommendation for delivery, and now HTN recorded x2 values (with normal labs, and not recorded 4 hours apart), plus a nonreactive NST in office followed by BPP 8 here at the hospital this evening. Discussed with patient that she technically hasn't met diagnostic criteria for gHTN or preeclampsia yet. Discussed with patient that the official follow up for a BPP of 6 is to repeat in 24 hours. Thus I would consider it acceptable for her to go home and return tomorrow for repeat BPP and BP check. However, also discussed that at 38w3d with the above scenario, I am equally comfortable offering delivery if she prefers. She very much does prefer that, as she feels that "we are waiting for something to go wrong" in order to decide to deliver her if we continue to wait for her to meet formal diagnostic criteria. We then discussed the risks of diabetes, including both a higher chance of lung immaturity and a higher chance of CPD, shoulder dystocia, nerve damage / brachial plexus injury in the fetus, and the recommendation for primary delivery due to estimated size in the setting of diabetes. She accepts this counseling and notes she was told all of this previously by Dr. Starr and the counseling was very similar both times. She feels that since multiple women in her family have given to >10lb infants she has reason to hope she might succeed at delivering vaginally, and she accepts the risks of injury to the fetus. She voices understanding that while we may have advance indications of CPD should the labor progress be slow, sometimes a problem is not evident until it is actually too late, such as shoulder dystocia which cannot be diagnosed or even reliably predicted until after delivery of the infant head. She says she did briefly "wobble" and consider just having a but has decided to go forward with induction of labor and wants to begin this process tonight. Plan TBD pending cervical check results. Physical Exam Genitourinary: FHT 140 mod malu +acc -dec [place] quiet Cvx to be checked after IV team finishes establishing IV. Results & Data Vital Signs (Past 12 Hours) Vital Signs Temp Pulse Resp BP 02/13/23 17:39 98.1 F 20 02/13/23 18:44 80 140/93 02/13/23 18:28 86 133/86 02/13/23 18:13 90 132/78 02/13/23 17:58 85 141/83 H 02/13/23 17:03 91 H 142/88 H Coding Level of Care Code None Diagnoses Insulin controlled gestational diabetes mellitus (GDM) during O24.414
[2023-02-13] MEDS: LACTATED RINGER'S 1,000 ML IV PRN (21:58)
[2023-02-13 22:06] LABS: Hematocrit (blood only) 37.1 % (37.0-47.0); Hemoglobin 12.7 g/dl (12.0-16.0); Mean Corpuscular Hemoglobin 27.7 pg (25.0-34.0); Mean Corpuscular Hgb Conc 34.2 g/dL (32.0-36.0); Mean Corpuscular Volume 80.8 fL (80.0-100.0); Mean Platelet Volume 11.9 fL (9.4-12.4); Platelet Count 187 K/uL (130-400); RDW Standard Deviation 43.3 fL (36.4-46.3); Red Blood Count 4.59 M/uL (4.20-5.40); White Blood Count 10.09 K/ul (4.8-10.8)
[2023-02-13] MEDS ORDERED: DEXTROSE 5% 1,000 ML IV PRN (23:02)
[2023-02-13] MEDS ORDERED: INSULIN REGULAR 250 UNITS in SODIUM CHLORIDE 0.9% 247.5 ML IV PRN (23:02)
[2023-02-13] MEDS ORDERED: DEXTROSE 50% 50 ML SYRINGE IV PRN (23:02)
[2023-02-13] MEDS ORDERED: SODIUM CHLORIDE 0.9% 1,000 ML IV PRN (23:02)
[2023-02-14] MEDS ORDERED: fentaNYL citrate PF 100 MCG/2 ML VIAL ONE (05:47)
--- NOTE | 2023-02-14 05:47 | Anesthesiology Consultation ---
Date of Service February 14, 2023 Assessment & Plan Chart Review Chart Review: Acceptable Risk for Labor Epidural Consults Requested none History Height/Weight Height: 5 ft 10 in Weight: 134.263 kg Allergies Allergy/AdvReac Type Severity Reaction Status Date / Time morphine AdvReac Severe GI UPSET Verified 02/13/23 17:43 Medications Home Medications Medication Instructions Recorded Confirmed Last Taken acetone (urine) test (Ketone Urine #50 ea 12/04/22 02/10/23 Unknown Test strips) blood sugar diagnostic (OneTouch #150 ea 12/04/22 02/10/23 Unknown Verio test strips) blood-glucose meter (OneTouch #1 ea 12/04/22 02/10/23 Unknown Verio Reflect Meter) lancets 33 gauge #150 ea 12/04/22 02/10/23 Unknown pen needle, diabetic 32 gauge x #100 ea 12/04/22 02/10/23 Unknown " (BD Ultra-Fine Jill Pen Needle) vit no.95-ferrous 1 tab PO DAILY 12/11/22 02/13/23 02/12/23 fumarate 28 mg-folic acid 800 mcg tablet () aspirin 81 mg capsule 81 mg PO DAILY 12/15/22 02/13/23 02/12/23 insulin NPH isoph U-100 human 100 60 unit subcut QPM 02/13/23 02/12/23 unit/mL (3 mL) subcutaneous pen (Humulin N NPH U-100 Insulin KwikPen) Active Medications Generic Name Dose Route Start Last Admin Trade Name Freq PRN Reason Stop Dose Admin Lactated Ringer's 1,000 mls @ 125 mls/hr 02/13/23 20:39 02/13/23 21:58 Lr IV 02/15/23 20:38 125 mls/hr .Q8H PRN Administration L&D Protocol Protocol Oxytocin 30 units in 500 mls @ 12 mls/hr 02/13/23 20:39 02/14/23 01:51 Pitocin IV 02/15/23 20:38 0.72 units/hr .Q24H PRN 12 mls/hr Labor Induction/Augmentation Titration Protocol 0.72 UNITS/HR Past Medical History Medical History (Updated 02/13/23 @ 17:52 by Ivonne Hooks MD) Anxiety took meds prior to Bipolar 1 disorder Depressed Dysmenorrhea GERD (gastroesophageal reflux disease) History of cleft palate History of closed head injury History of corrected cleft lip and palate Irregular bleeding Medical cannabis use has medical card No pertinent past medical history Obesity Prehypertension Retina disorder, left left eye removed; fake eye Seizure as baby Past Family History Family History Family/Other Deep vein thrombosis, Onset Age: 80 great-grandmother Family/Other Myocardial infarction Mother Gestational diabetes Denies family history of Ovarian cancer Prostate cancer Breast cancer Colorectal cancer Uterine cancer Past Surgical History Surgical History History of ankle surgery History of cholecystectomy History of eye removal History of oral surgery palatoplasty for cleft palate History of placement of ear tubes Social History Smoking Status: Never smoker Do You Dip or Chew Tobacco: No Hx Alcohol Use: No Hx Substance Use: Yes substance use type: marijuana Substance Use Type Other:: Medical Marijuana Last Used Substance: Days (ago) Last Used Substance Other:: 02/12/23 Physical Exam Vital Signs Last Vital Signs Temp 36.9 C 02/14/23 05:13 Pulse 92 H 02/14/23 05:25 Resp 18 02/14/23 05:13 BP 127/70 02/14/23 05:25 Testing Laboratory Results 02/13/23 21:29 02/13/23 18:00 Blood Type A Positive 02/13/23 21:29 Antibody Screen NEGATIVE 02/13/23 21:29 02/13/23 21:36 POC Glucose 142 H
[2023-02-14] MEDS ORDERED: NALOXONE HCL 0.4 MG/1 ML VIAL/CARP IV PRN (05:48)
[2023-02-14] MEDS ORDERED: LIDOCAINE 2%/EPINEPHRINE 1:200,000 20 ML PF EPI STA (05:48)
[2023-02-14] MEDS ORDERED: LIDOCAINE 2%/EPINEPHRINE 1:200,000 20 ML PF ONE (05:48)
[2023-02-14] MEDS ORDERED: fentaNYL citrate PF 100 MCG/2 ML VIAL EPI PRN (05:48)
[2023-02-14] MEDS ORDERED: BUPIVACAINE 0.25% PF 30 ML VIAL EPI STA (05:48)
[2023-02-14] MEDS ORDERED: NALOXONE HCL 1 MG in SODIUM CHLORIDE 0.9% 1,000 ML IV PRN (05:48)
[2023-02-14] MEDS ORDERED: ROPIVACAINE 0.5% PF 5 MG/ML 20 ML VIAL EPI PRN (05:48)
[2023-02-14] MEDS ORDERED: SODIUM CHLORIDE 0.9% PF INJ 10 ML VIAL ONE (05:48)
[2023-02-14] MEDS ORDERED: BUPIVACAINE 0.25% PF 30 ML VIAL EPI PRN (05:48)
[2023-02-14] MEDS ORDERED: SODIUM CHLORIDE 0.9% PF INJ 10 ML VIAL EPI PRN (05:48)
[2023-02-14] MEDS ORDERED: diphenhydrAMINE 50 MG/ML VIAL IV PRN (05:48)
[2023-02-14] MEDS ORDERED: fentANYL 2 MCG/ML BUPIVacaine 0.125%-NSS 100ML BAG ONE (05:48)
[2023-02-14] MEDS ORDERED: NALBUPHINE HCL INJ 10 MG/ML AMP IV PRN (05:48)
[2023-02-14] MEDS ORDERED: ePHEDrine sulfate 50 MG/ML AMP ONE (05:48)
[2023-02-14] MEDS ORDERED: fentANYL 2 MCG/ML BUPIVacaine 0.125%-NSS 100ML BAG EPI PRN (05:48)
[2023-02-14] MEDS ORDERED: fentaNYL citrate PF 100 MCG/2 ML VIAL EPI STA (05:48)
[2023-02-14] MEDS ORDERED: ePHEDrine sulfate 50 MG/ML AMP IV PRN (05:48)
[2023-02-14] MEDS ORDERED: SODIUM CHLORIDE 0.9% PF INJ 10 ML VIAL EPI STA (05:48)
[2023-02-14] MEDS ORDERED: LIDOCAINE 2% MPF LOCAL 5 ML VIAL EPI PRN (05:48)
[2023-02-14] MEDS ORDERED: BUPIVACAINE 0.25% PF 30 ML VIAL ONE (05:48)
[2023-02-14] MEDS: LACTATED RINGER'S 1,000 ML IV PRN ×3 (05:58→16:34)
[2023-02-14] MEDS: ONDANSETRON INJ 2 MG/ML 2 ML VIAL IV PRN ×2 (08:11→15:55)
--- NOTE | 2023-02-14 14:44 | Labor Progress Brief Note ---
Date of Service February 14, 2023 Subjective Reason For Note: Routine Evaluation Current Pain Level(1-10): 0 contractions difficult to trace unless Martita is lying flat. FHT has been reactive and reassuring pitocin now at 22 milliunits IUPC insertion attempted but unsuccessful as head is well applied to cervix now with some molding +1 station just a rim of cervix left. Review of Systems All systems reviewed & are unremarkable except as noted in HPI & below Assessment & Plan (1) Supervision of normal intrauterine in primigravida: Plan: making good progress continue pitocin augmentation Admission and Anticipated Discharge Date Admission Date: February 13, 2023 Results & Data Vital Signs (Past 12 Hours) Vital Signs Temp Pulse Resp BP Pulse Ox 02/14/23 06:38 98.4 F 18 02/14/23 14:37 100 H 133/85 95 02/14/23 14:32 104 H 96 02/14/23 14:27 99 H 96 02/14/23 14:22 96 H 96 02/14/23 14:14 20 02/14/23 14:14 98.2 F 20 02/14/23 14:17 95 H 98 02/14/23 14:12 105 H 99 02/14/23 14:11 102 H 92 02/14/23 14:07 86 98 02/14/23 14:02 92 H 97 02/14/23 13:57 88 98 02/14/23 13:52 99 H 97 02/14/23 13:47 91 H 98 02/14/23 13:42 94 H 96 02/14/23 13:37 97 02/14/23 13:37 104 H 02/14/23 13:37 97 H 135/80 02/14/23 13:32 107 H 94 02/14/23 13:31 91 H 94 02/14/23 13:27 92 H 94 02/14/23 13:26 102 H 94 02/14/23 13:22 94 H 95 02/14/23 13:21 93 H 94 02/14/23 13:17 96 H 95 02/14/23 13:14 94 H 94 02/14/23 13:12 93 H 95 02/14/23 13:07 94 H 97 02/14/23 13:02 96 H 97 02/14/23 12:57 97 H 95 02/14/23 12:52 95 02/14/23 12:52 99 H 02/14/23 12:52 100 H 94 02/14/23 12:47 114 H 99 02/14/23 12:44 92 H 94 02/14/23 12:42 93 H 96 02/14/23 12:39 86 94 02/14/23 12:37 91 H 95 02/14/23 12:36 90 150/71 H 02/14/23 12:32 102 H 94 02/14/23 12:29 88 94 02/14/23 12:27 93 H 95 02/14/23 12:22 89 95 02/14/23 12:17 97 H 96 02/14/23 12:12 99 H 95 02/14/23 12:11 99 H 92 02/14/23 12:07 103 H 96 02/14/23 12:02 91 H 95 02/14/23 11:57 82 95 02/14/23 11:54 84 94 02/14/23 11:52 84 94 02/14/23 11:47 91 H 95 02/14/23 11:48 91 H 94 02/14/23 11:42 90 96 02/14/23 11:37 89 96 02/14/23 11:35 90 130/76 02/14/23 11:32 85 97 02/14/23 11:27 87 96 02/14/23 11:22 95 H 96 02/14/23 11:17 87 95 02/14/23 11:12 87 96 02/14/23 11:07 84 96 02/14/23 11:02 92 H 96 02/14/23 10:57 94 H 96 02/14/23 10:52 92 H 96 02/14/23 10:47 104 H 97 02/14/23 10:42 98 H 97 02/14/23 10:37 101 H 97 02/14/23 10:35 90 122/69 02/14/23 10:32 93 H 96 02/14/23 10:27 97 H 97 02/14/23 10:22 93 H 96 02/14/23 10:17 94 H 96 02/14/23 10:12 94 H 98 02/14/23 10:07 96 H 98 02/14/23 10:02 99 H 97 02/14/23 09:57 94 H 97 02/14/23 09:52 99 H 97 02/14/23 09:47 85 98 02/14/23 09:42 91 H 97 02/14/23 09:37 89 97 02/14/23 09:36 87 140/79 02/14/23 09:32 87 98 02/14/23 09:27 85 98 02/14/23 09:14 18 02/14/23 09:14 97.5 F L 18 02/14/23 09:22 88 99 02/14/23 09:17 91 H 99 02/14/23 09:12 90 99 02/14/23 09:07 91 H 99 02/14/23 09:02 87 98 02/14/23 08:57 90 98 02/14/23 08:52 94 02/14/23 08:52 83 02/14/23 08:52 83 93 02/14/23 08:47 95 02/14/23 08:47 86 02/14/23 08:47 87 94 02/14/23 08:42 89 95 02/14/23 08:37 87 95 02/14/23 08:38 86 94 02/14/23 08:35 85 144/72 H 02/14/23 08:32 94 H 96 02/14/23 08:27 91 H 96 02/14/23 08:22 93 H 94 02/14/23 08:23 89 94 02/14/23 08:17 95 H 94 02/14/23 08:16 99 H 94 02/14/23 08:12 98 H 96 02/14/23 08:07 109 H 96 02/14/23 08:02 121 H 98 02/14/23 07:57 107 H 96 02/14/23 07:52 120 H 96 02/14/23 07:47 116 H 96 02/14/23 07:42 109 H 145/87 H 97 02/14/23 07:37 113 H 139/90 96 02/14/23 07:34 105 H 94 02/14/23 07:32 116 H 95 02/14/23 07:27 100 H 99 02/14/23 07:22 112 H 94 02/14/23 07:23 109 H 93 02/14/23 07:17 101 H 95 02/14/23 07:13 97.5 F L 108 H 18 141/83 H 96 02/14/23 07:12 100 H 97 02/14/23 07:07 104 H 96 02/14/23 07:02 96 02/14/23 07:02 104 H 02/14/23 07:02 115 H 93 02/14/23 06:57 99 H 95 02/14/23 06:52 104 H 95 02/14/23 06:47 102 H 95 02/14/23 06:42 92 H 95 02/14/23 06:22 18 02/14/23 06:22 18 02/14/23 06:39 103 H 91 02/14/23 06:37 89 97 02/14/23 06:34 101 H 144/84 H 02/14/23 06:32 96 H 139/79 97 02/14/23 06:30 96 H 139/78 02/14/23 06:27 96 H 96 02/14/23 06:28 96 H 135/72 02/14/23 06:26 89 136/75 02/14/23 06:24 98 H 141/75 H 02/14/23 06:22 95 02/14/23 06:22 94 H 02/14/23 06:22 91 H 139/73 02/14/23 06:17 97 H 95 02/14/23 06:12 93 02/14/23 06:12 116 H 02/14/23 06:12 90 93 02/14/23 06:07 105 H 93 02/14/23 06:06 101 H 93 02/14/23 05:13 18 02/14/23 05:13 98.4 F 18 02/14/23 05:25 92 H 127/70 02/14/23 04:28 92 H 132/83 02/14/23 03:25 88 115/64
[2023-02-14] MEDS ORDERED: miSOPROStoL 200 MCG TAB ONE (17:48)
[2023-02-14] MEDS ORDERED: HYDROCORTISONE ACETATE 25 MG SUPP PR PRN (18:20)
[2023-02-14] MEDS ORDERED: BENZOCAINE 20% SPRY 85 APPLN/85 GM CAN EXT PRN (18:20)
[2023-02-14] MEDS ORDERED: miSOPROStoL 200 MCG TAB PR ONE (18:20)
[2023-02-14] MEDS ORDERED: ACETAMINOPHEN 325 MG TAB PO PRN (18:20)
[2023-02-14] MEDS ORDERED: bisacodyL 10 MG SUPP PR PRN (18:20)
[2023-02-14] MEDS ORDERED: IBUPROFEN 600 MG TAB PO PRN (18:20)
[2023-02-14] MEDS ORDERED: OXYTOCIN 30 UNITS/500 ML BAG IV PRN (18:20)
[2023-02-14] MEDS ORDERED: oxyCODONE/ACETAMINOPHEN 5mg/325mg TAB PO PRN (18:20)
[2023-02-14 18:29] LABS: Hematocrit (blood only) 34.1 % (37.0-47.0); Hemoglobin 11.2 g/dl (12.0-16.0)
[2023-02-14] MEDS ORDERED: ceFAZolin 330 MG/ML 1 GM VIAL IM STA (18:53)
[2023-02-14] MEDS ORDERED: ceFAZolin 2000MG 2,000 MG/15 ML SYR IV STA (19:00)
--- NOTE | 2023-02-14 19:01 | Anesthesia Procedure Note ---
Date of Service February 14, 2023 Anesthesia Post Epidural Note Vital Signs Vital Signs: Temp Pulse Resp BP Pulse Ox 36.8 C 136 H 18 139/64 96 02/14/23 14:14 02/14/23 18:45 02/14/23 18:30 02/14/23 18:45 02/14/23 18:12 Pain Intensity Bilateral Abdomen: Pain Intensity: 0 Notes Mental Status: alert / awake / arousable Nausea / Vomiting: adequately controlled Pain: adequately controlled Airway Patency, RR, SpO2: stable & adequate BP & HR: stable & adequate Hydration State: stable & adequate Neuraxial Anesthesia: was administered and sensory block is resolving Anesthetic Complications: no major complications apparent Epidural: Removed without complications and With tip intact
--- NOTE | 2023-02-14 19:02 | Delivery Summary ---
Vaginal Delivery Summary Date of Service February 14, 2023 Vaginal Delivery Summary and 1st Degree LAC Patient is a 22-year-old 1 P0 who presents for induction because of nonreassuring heart rate pattern and a diagnosis of gestational hypertension. Pitocin augmentation of her labor, and after epidural analgesia was effective, membranes were ruptured for clear fluid. She progressed to full dilation and pushed effectively for 38 minutes over intact perineum for delivery of a viable male . After the head was delivered there was a mild shoulder dystocia present. Hyperflexion of the hips resolved the dystocia and the rest the infant was delivered easily and placed on the mother's abdomen for further attention and drying. After 1 minute, the cord was clamped and cut. He was crying but had poor tone and he was taken to the bed for further evaluation and stimulation. After cord blood was obtained, the placenta was expressed intact with a three-vessel cord. There was significant bleeding. This was controlled initially with dilute IV Pitocin and fundal massage. She then received 1000 mg of Cytotec rectally. The uterine cavity was then swept of some retained clot. At this point the uterus became firm and bleeding became satisfactory. A first-degree perineal laceration was repaired with 3-0 chromic in the usual fashion. Mother and were doing well after delivery. Estimated blood loss was 800 cc. There was a copious amount of amniotic fluid that was released after the baby was born so it is difficult to come up with a realistic assessment. hemoglobin was 11.2. [facility] Vaginal Delivery Charge Delivery Type Details: and 1st Degree LAC
[2023-02-14] MEDS ORDERED: SODIUM CHLORIDE 0.9% 250 ML IV PRN (19:41)
[2023-02-14] MEDS: DOCUSATE SODIUM 100 MG CAP PO SCH (20:58)
[2023-02-14] MEDS: ACETAMINOPHEN 325 MG TAB PO PRN (21:00)
--- NOTE | 2023-02-15 06:50 | Obstetrical Progress Note ---
Date of Service February 15, 2023 Assessment & Plan (1) Encounter for care and examination after delivery: doing well day one check H&H this am- may need iron supplementation because of significant ppx hemorrhage Subjective Ambulation: ambulating normally Voiding: no voiding problems Passing Gas:: Yes Diet Tolerance:: regular diet Lochia:: Small Feeding Type:: breast feeding (+ formula supplement) no problems with lightheadedness or syncope when ambulating. Review of Systems All systems reviewed & are unremarkable except as noted in HPI & below Physical Exam Constitutional WD/WN, vitals as above Psychiatric A+Ox3, euthymic affect Genitourinary OB Exam Abdomen: + fundal height Fundus: + firm and + relation to umbilicus (at U) Results & Data Vital Signs (Past 12 Hours) Vital Signs Temp Pulse Pulse Resp BP BP Pulse Ox 02/15/23 04:00 98.8 F 120 H 20 119/81 97 02/14/23 21:50 99.7 F H 129 H 20 133/84 98 02/14/23 21:00 99.7 F H 20 02/14/23 20:15 20 02/14/23 19:45 20 02/14/23 19:15 99.1 F 18 02/14/23 19:00 100.6 F H 127 H 20 132/66 02/14/23 20:45 122 H 124/88 02/14/23 20:30 117 H 122/87 02/14/23 20:15 133 H 114/69 02/14/23 20:00 142 H 129/73 02/14/23 19:46 136 H 133/75 02/14/23 19:15 136 H 118/58 L 02/14/23 19:00 127 H 132/66 O2 Del Method 02/15/23 04:00 Room Air 02/14/23 21:50 Room Air 02/14/23 21:00 02/14/23 20:15 02/14/23 19:45 02/14/23 19:15 02/14/23 19:00 02/14/23 20:45 02/14/23 20:30 02/14/23 20:15 02/14/23 20:00 02/14/23 19:46 02/14/23 19:15 02/14/23 19:00
[2023-02-15 07:25] LABS: Hematocrit (blood only) 24.3 % (37.0-47.0); Hemoglobin 8.3 g/dl (12.0-16.0); Mean Corpuscular Hemoglobin 28.1 pg (25.0-34.0); Mean Corpuscular Hgb Conc 34.2 g/dL (32.0-36.0); Mean Corpuscular Volume 82.4 fL (80.0-100.0); Mean Platelet Volume 11.8 fL (9.4-12.4); Platelet Count 151 K/uL (130-400); RDW Coefficient of Variation 14.8 % (11.5-14.5); Red Blood Count 2.95 M/uL (4.20-5.40); White Blood Count 11.42 K/ul (4.8-10.8)
[2023-02-15] MEDS: PRENATAL VITAMIN 1 TAB PO SCH (08:46)
[2023-02-15] MEDS: DOCUSATE SODIUM 100 MG CAP PO SCH ×2 (08:46→20:52)
[2023-02-15] MEDS: ACETAMINOPHEN 325 MG TAB PO PRN ×2 (08:48→18:15)
[2023-02-15] MEDS ORDERED: DIPHTHERIA/TETANUS/PERTUSSIS Vaccine (Tdap, Age 7+yrs) 0.5mL SYR/VL IM ONE (09:00)
[2023-02-15] MEDS ORDERED: bisacodyL 5 MG TABEC PO SCH (20:00)
--- NOTE | 2023-02-16 06:35 | Obstetrical Progress Note ---
Date of Service <Josefina Joseph MD - Last Filed: 02/16/23 07:56> February 16, 2023 Assessment & Plan <Josefina Joseph MD - Last Filed: 02/16/23 07:56> (1) Encounter for care and examination after delivery: Plan Patient with the above mentioned history and findings was evaluated at bedside and found awake, alert, oriented in all spheres, afebrile, and in no acute distress. Vital signs showed no fever and blood pressures remained stable and has remained without symptoms of severity (e.g. vision changes, headaches, oliguria, etc.). Her blood type is A positive and today's hemoglobin is stable at 8.2 g/dL, which is not changed much compared to yesterday (8.3). She is GBS negative and rubella immune. Overall, patient is doing well clinically and meeting the desired milestones. Her Hgb has stabilized and is without symptoms concerning for anemia. Since she is clinically and hemodynamically stable, will discharge today with recommendation to take iron supplements after discharge as management of her anemia. Discharge instructions discussed. She is to make an appointment with her OB for 6 weeks after discharge for follow up evaluation. All questions were answered. <Pascale Cruz MD, FACOG - Last Filed: 02/16/23 09:17> (1) Encounter for care and examination after delivery: Subjective <Josefina Joseph MD - Last Filed: 02/16/23 07:56> Martita is a 22 y/o female who is now PPD # 2 following at 38 4/7 wga after IOL due to Non-Reassuring FHT and GHTN. Her delivery was complicated by hemorrhage that was controlled with Pitocin + uterine massage and Cytotec 1000mg rectally. Today, she refers feeling well and denies having symptoms of anemia such as lightheadedness, dizziness, tachycardia, or palpitations. Refers mild abdominal cramping & 1/10 pain well managed on analgesics. She is voiding spontaneously without difficulty. She is passing flatus and has had a bowel movement. Tolerating meals overnight and able to ambulate some. Some persistent lochia with some improvement this morning. She is . Constitutional: no fever, no chills or no sweats Denies shortness of breath or difficulty breathing Cardiovascular: no chest pain or no palpitations Breast: no breast pain Genitourinary (female): no dysuria Neurologic: no headache(s) Denies changes in vision Physical Exam <Josefina Joseph MD - Last Filed: 02/16/23 07:56> General: Alert. Oriented to person, time, and place. Afebrile. No acute distress. Eyes: pupils equal and reactive to light bilaterally, extraocular movements intact. Cardiac: Regular rate and rhythm, no murmurs/rubs/gallops. Respiratory: Clear to auscultation bilaterally a/p, no wheezes/rales/rhonchi. No increased work of breathing. Symmetrical chest rise. No respiratory distress. Abdomen: Soft, nontender, nondistended. Bowel sounds present. Uterus: Uterine fundus firm, non-tender, and palpable below umbilicus. Lower Extremities: Bilateral lower extremity swelling. No deep calf pain. Vidya's negative bilaterally. Psych: Euthymic affect. Mood and affect congruence. Regular speech rate and content. Results & Data <Josefina Joseph MD - Last Filed: 02/16/23 07:56> Vital Signs (Past 12 Hours) Vital Signs Temp Pulse Resp BP Pulse Ox O2 Del Method 02/16/23 00:00 36.6 C 96 H 18 124/83 96 Room Air 02/15/23 20:35 36.7 C 106 H 18 122/80 98 Room Air <Pascale Cruz MD, FACOG - Last Filed: 02/16/23 09:17> Co-Signing Physician Notes Resident Physician Supervision Note: I interviewed and examined the patient. Discussed with Dr. Joseph and agree with findings and plan as documented in the note. Any exceptions or clarifications are listed here: [None] Documented By: Pascale Cruz MD, FACOG Resident Activity Tracking <Josefina Joseph MD - Last Filed: 02/16/23 07:56> Resident Involvement: Resident Care Provided Care Provided: OB Delivery
[2023-02-16 06:37] LABS: Hematocrit (blood only) 24.5 % (37.0-47.0); Hemoglobin 8.2 g/dl (12.0-16.0)
[2023-02-16] MEDS: DOCUSATE SODIUM 100 MG CAP PO SCH (07:47)
[2023-02-16] MEDS: PRENATAL VITAMIN 1 TAB PO SCH (07:48)
[2023-02-16] MEDS: ACETAMINOPHEN 325 MG TAB PO PRN (07:48)
== END 2023-02-16 12:55 | disposition home or self-care (01) | DRG 806 ==
LOC: OPB 16:56 → 4S1 16:57 → 4E2 02-14 21:51

== ENCOUNTER 2024-10-10 10:46 | Inpatient (IN) ==
[2024-10-10] MEDS ORDERED: OXYTOCIN 30 UNITS/NSS 30 UNITS/500 ML BAG IV PRN (18:16)
[2024-10-10] MEDS ORDERED: LIDOCAINE 1% LOCAL 20 ML VIAL INFIL PRN (18:16)
[2024-10-10] MEDS ORDERED: SODIUM CHLORIDE 0.9% 100 ML IV PRN (18:21)
[2024-10-10 18:51] LABS: Hematocrit (blood only) 32.6 % (37.0-47.0); Hemoglobin 10.8 g/dl (12.0-16.0); Mean Corpuscular Hgb Conc 33.1 g/dL (32.0-36.0); Mean Corpuscular Volume 78.6 fL (80.0-100.0); Mean Platelet Volume 10.9 fL (9.4-12.4); Platelet Count 203 K/uL (130-400); RDW Coefficient of Variation 14.6 % (11.5-14.5); RDW Standard Deviation 41.3 fL (36.4-46.3); Red Blood Count 4.15 M/uL (4.20-5.40); White Blood Count 8.49 K/ul (4.8-10.8)
[2024-10-10] MEDS: LACTATED RINGER'S 1,000 ML IV PRN (19:30)
[2024-10-10] MEDS: OXYTOCIN 30 UNITS/NSS 30 UNITS/500 ML BAG IV PRN (19:56)
--- NOTE | 2024-10-10 19:56 | History & Physical Report ---
Date of Service October 10, 2024 Assessment & Plan (1) 39 weeks gestation of : (2) Insulin controlled gestational diabetes mellitus (GDM) during : (3) LGA (large for gestational age) fetus affecting management of mother: (4) Obesity affecting , antepartum: (5) History of gestational hypertension: Plan admit, iv, labs. will see how bps trend, currently no sx. may need to plan cmp. arom done, watch fluid. plan pitocin now. will need exam before able to ambulate to make sure cephalic well applied. fhts categ 1. bsg was ok, plan q2hr in active labor. hold insulin. again pt well aware of shoulder dystocia risk with her prior episode, obesity and lga fetus, she declines c/s. wants to proceed with attempt at vaginal delivery. Admission and Anticipated Discharge Date Admission Date: October 10, 2024 History of Present Illness Chief Complaint: planned induction Primary Care Provider: NO PCP 24yo at 39+wks presents to LD for planned induction with GDM on insulin, suspected LGA fetus and history in prior delivery of mild shoulder dystocia. Pt denies rom, vb. +FM. No ctx. Well aware of option for direct primary c/s but declines, wants to attempt vaginal delivery, feels this baby is smaller. She had gest htn last and today is first time her bps have been elevated. No sx of mart or visual change. No ruq pain. PNC c/b 1. Obesity 2. GDM on insulin 3. LGA, >98% efw at 36wks 4. h/o gest htn prior PNL rhpos, ri, gbs neg OBH: x 1, mild dystocia GYNH: nl paps no stds. Allergies Allergy/AdvReac Type Severity Reaction Status Date / Time morphine AdvReac Severe GI UPSET Verified 10/10/24 17:43 Home Medications Medication Instructions Recorded Confirmed Type vit no.[id number] 1 tab PO DAILY 11/18/23 10/10/24 History [Classic ] blood-glucose sensor (Dexcom G7 #3 ea 05/05/24 10/07/24 Rx Sensor device) pen needle, diabetic 32 gauge x #150 ea 05/19/24 10/07/24 Rx /32" (BD Ultra-Fine Jill Pen Needle) acetone (urine) test (Ketone Urine #50 ea 07/13/24 10/07/24 Rx Test strips) blood sugar diagnostic (OneTouch #150 ea 07/13/24 10/07/24 Rx Verio test strips) blood-glucose meter (OneTouch #1 ea 07/13/24 10/07/24 Rx Verio Reflect Meter) lancets 33 gauge (OneTouch Delica #150 ea 07/13/24 10/07/24 Rx Plus Lancet) insulin aspart U-100 100 unit/mL See Rx Instructions subcut TID #30 09/08/24 10/10/24 Rx (3 mL) subcutaneous pen (Novolog mL FlexPen U-100 Insulin aspart) insulin NPH isoph U-100 human 100 100 unit subcut QPM 10/10/24 10/10/24 History unit/mL (3 mL) subcutaneous pen (Novolin N FlexPen) Patient History Medical History Encounter for care and examination after delivery Prehypertension Obesity No pertinent past medical history Irregular bleeding History of cleft palate Dysmenorrhea Medical cannabis use Polyhydramnios Insulin controlled gestational diabetes mellitus (GDM) during Obesity affecting , antepartum Supervision of normal intrauterine in primigravida History of closed head injury Retina disorder, left Anxiety Bipolar 1 disorder GERD (gastroesophageal reflux disease) Seizure History of corrected cleft lip and palate Surgical History History of oral surgery History of cholecystectomy History of placement of ear tubes History of ankle surgery History of eye removal Family History Family/Other Deep vein thrombosis, Onset Age: 80 Family/Other Myocardial infarction Mother Gestational diabetes Father Diabetes Denies family history of Ovarian cancer Prostate cancer Breast cancer Colorectal cancer Uterine cancer Social History Smoking Status: Never smoker Second Hand Exposure: No; Do You Dip or Chew Tobacco: No; Hx Alcohol Use: No Hx Substance Use: No Preferred Language: Belarusian Communication Ability: Effective Hearing Ability: Normal Inside Plant Supervisor Required: No Beliefs That Will Affect Care: None marital status: marital status details: Garcia (26) [phone] Current Living Situation: Spouse Current Living Situation Comment: WITH and Son, 2cats,spouse to change litter current occupational status: employed current occupation: [employer]- [employer] Other Information That Helps Us Care for You: No Feels Safe at Home: Yes Safety Concerns: Feels Safe At This Time Childhood Exposure to Second-Hand Smoke: Yes Diet: regular caffeine: No Dental Care, Regularly: Yes Physical Activity Frequency: 1-2 Times per Week Seatbelt Use: always Assistive Devices: None Review of Systems as per Subjective / HPI Physical Exam Constitutional: WD/WN, vitals as above Respiratory: normal respiratory effort, lungs clear to auscultation Cardiovascular: Rate/Rhythm: regular rate and regular rhythm Gastrointestinal (Abdomen): soft gravid nt obese efw 9-10# Musculoskeletal: no edema nontender calves Neurologic: grossly normal Psychiatric: A+Ox3, euthymic affect Genitourinary: Manual OB Exam: + cervical dilation (2-3), + cervical effacement 50%, + station -2 and + amniotic fluid (arom) clear and meconium (poss light staining) OB Exam Monitor Tracing: + external FHT monitor used, + external uterine monitor used, + category I and + normal FHT variability Results & Data Vital Signs (Past 12 Hours) Vital Signs Temp Pulse Resp BP 10/10/24 19:30 98.1 F 10/10/24 19:09 102 H 144/85 H 10/10/24 17:52 110 H 142/72 H 10/10/24 17:27 109 H 142/85 H 10/10/24 17:23 98.8 F 20 Coding Level of Care Code None Diagnoses 39 weeks gestation of Z3A.39 Insulin controlled gestational diabetes mellitus (GDM) during O24.414 LGA (large for gestational age) fetus affecting management of mother O36.60X0 Obesity affecting , antepartum O99.210 History of gestational hypertension Z87.59
[2024-10-11] MEDS ORDERED: SODIUM CHLORIDE 0.9% PF INJ 10 ML VIAL EPI STA (00:28)
[2024-10-11] MEDS ORDERED: diphenhydrAMINE 50 MG/ML VIAL IV PRN (00:28)
[2024-10-11] MEDS ORDERED: LIDOCAINE 2%/EPINEPHRINE 1:200,000 20 ML PF EPI STA (00:28)
[2024-10-11] MEDS ORDERED: ePHEDrine sulfate 50 MG/ML AMP IV PRN (00:28)
[2024-10-11] MEDS ORDERED: BUPIVACAINE 0.25% PF 30 ML VIAL EPI STA (00:28)
[2024-10-11] MEDS ORDERED: LIDOCAINE 2% MPF LOCAL 5 ML VIAL EPI PRN (00:28)
[2024-10-11] MEDS ORDERED: NALOXONE HCL 1 MG in SODIUM CHLORIDE 0.9% 1,000 ML IV PRN (00:28)
[2024-10-11] MEDS ORDERED: fentaNYL citrate PF 100 MCG/2 ML VIAL EPI STA (00:28)
[2024-10-11] MEDS ORDERED: fentaNYL citrate PF 100 MCG/2 ML VIAL EPI PRN (00:28)
[2024-10-11] MEDS ORDERED: NALBUPHINE HCL INJ 10 MG/ML AMP IV PRN (00:28)
[2024-10-11] MEDS ORDERED: ROPIVACAINE 0.5% PF 5 MG/ML 20 ML VIAL EPI PRN (00:28)
[2024-10-11] MEDS ORDERED: fentANYL 2 MCG/ML BUPIVacaine 0.125%-NSS 100ML BAG EPI PRN (00:28)
[2024-10-11] MEDS ORDERED: BUPIVACAINE 0.25% PF 30 ML VIAL EPI PRN (00:28)
[2024-10-11] MEDS ORDERED: SODIUM CHLORIDE 0.9% PF INJ 10 ML VIAL EPI PRN (00:28)
[2024-10-11] MEDS ORDERED: NALOXONE HCL 0.4 MG/1 ML VIAL/CARP IV PRN (00:28)
--- NOTE | 2024-10-11 00:28 | Anesthesiology Consultation ---
Date of Service October 11, 2024 Assessment & Plan ASA ASA3 Proposed Anesthesia Anesthesia Type: Labor Epidural Risk / Benefits Reviewed With: PT / POA / Parent / Guardian, Accepts Plan and Informed Consent Obtained History Height/Weight Height: 5 ft 10 in Weight: 137.438 kg Allergies Allergy/AdvReac Type Severity Reaction Status Date / Time morphine AdvReac Severe GI UPSET Verified 10/10/24 17:43 Medications Home Medications Medication Instructions Recorded Confirmed Last Taken vit no.[id number] 1 tab PO DAILY 11/18/23 10/10/24 10/10/24 08:00 [Classic ] blood-glucose sensor (Dexcom G7 #3 ea 05/05/24 10/07/24 Unknown Sensor device) pen needle, diabetic 32 gauge x #150 ea 05/19/24 10/07/24 Unknown " (BD Ultra-Fine Jill Pen Needle) acetone (urine) test (Ketone Urine #50 ea 07/13/24 10/07/24 Unknown Test strips) blood sugar diagnostic (OneTouch #150 ea 07/13/24 10/07/24 Unknown Verio test strips) blood-glucose meter (OneTouch #1 ea 07/13/24 10/07/24 Unknown Verio Reflect Meter) lancets 33 gauge (OneTouch Delica #150 ea 07/13/24 10/07/24 Unknown Plus Lancet) insulin aspart U-100 100 unit/mL See Rx Instructions subcut TID #30 09/08/24 10/10/24 10/10/24 13:00 (3 mL) subcutaneous pen (Novolog mL FlexPen U-100 Insulin aspart) insulin NPH isoph U-100 human 100 100 unit subcut QPM 10/10/24 10/10/24 10/09/24 23:00 unit/mL (3 mL) subcutaneous pen (Novolin N FlexPen) Active Medications Generic Name Dose Route Start Last Admin Trade Name Freq PRN Reason Stop Dose Admin Oxytocin 30 units in 500 mls @ 5 mls/hr 10/10/24 18:20 10/10/24 21:05 Pitocin 30 Units/Nss IV 10/12/24 18:19 0.3 units/hr .Q24H PRN 5 mls/hr Labor Induction/Augmentation Titration Protocol 0.3 UNITS/HR Lactated Ringer's 1,000 mls @ 125 mls/hr 10/10/24 18:16 10/10/24 19:30 Lr IV 10/12/24 18:15 125 mls/hr .Q8H PRN Administration L&D Protocol Protocol Past Medical History Medical History Encounter for care and examination after delivery Prehypertension Obesity No pertinent past medical history Irregular bleeding History of cleft palate Dysmenorrhea Medical cannabis use has medical card Polyhydramnios Obesity affecting , antepartum Supervision of normal intrauterine in primigravida History of closed head injury Retina disorder, left left eye removed; fake eye Anxiety took meds prior to Bipolar 1 disorder GERD (gastroesophageal reflux disease) Seizure as baby History of corrected cleft lip and palate Exercise / Class Metabolic Activity II 4-5 Yardwork/Stairs/Walk up hill Past Family History Family History Family/Other Deep vein thrombosis, Onset Age: 80 great-grandmother Family/Other Myocardial infarction Mother Gestational diabetes Father Diabetes Denies family history of Ovarian cancer Prostate cancer Breast cancer Colorectal cancer Uterine cancer Past Surgical History Surgical History History of oral surgery palatoplasty for cleft palate History of cholecystectomy History of placement of ear tubes History of ankle surgery History of eye removal Past Anesthesia History No Hx of Anesthesia Complications and No Family Hx of Anesthesia Complications History of PONV No Hx of PONV and No Hx of Motion Sickness Social History Smoking Status: Never smoker Do You Dip or Chew Tobacco: No Hx Alcohol Use: No Hx Substance Use: No substance use type: marijuana Substance Use Type Other:: Medical Marijuana Review of Systems denies fever/cough/ colds/ chest pain/ SOB/ TIFFANY denies TIFFANY Physical Exam Vital Signs Last Vital Signs Temp 36.7 C 10/10/24 23:21 Pulse 103 H 10/11/24 00:57 Resp 20 10/10/24 17:23 BP 150/75 H 10/11/24 00:57 Pulse Ox 98 10/11/24 00:56 ENMT Mouth: no TMJ abnormality and no dentition abnormality Thyromental Distance: > or= 3.5 Finger Breadths Mallampati Class: II Neck neck extension not limited Respiratory normal respiratory effort; no respiratory distress Auscultation: lungs clear to auscultation bilaterally Cardiovascular Rate/Rhythm: regular rate and regular rhythm Neurologic moves all extremities Psychiatric Orientation: alert and oriented x 3 Testing Laboratory Results 10/10/24 18:37 Blood Type A Positive 10/10/24 18:37 Antibody Screen NEGATIVE 10/10/24 18:37 10/10/24 10/10/24 10/10/24 23:59 22:00 21:01 POC Glucose 78 79 70 10/10/24 10/10/24 20:02 18:15 POC Glucose 72 104 H
--- NOTE | 2024-10-11 00:30 | Labor Progress Brief Note ---
Date of Service October 11, 2024 Subjective having more pain with ctx and ready for epidural Assessment & Plan (1) 39 weeks gestation of : (2) LGA (large for gestational age) fetus affecting management of mother: (3) Insulin controlled gestational diabetes mellitus (GDM) during : (4) History of gestational hypertension: (5) Obesity affecting , antepartum: Plan bps still mild range. bsgs ok, 78 was last, ok to do q2hr. fhts categ 1. c/w pit. will be getting epidural soon per request. Admission and Anticipated Discharge Date Admission Date: October 10, 2024 Physical Exam Constitutional: WD/WN, vitals as above Genitourinary: Manual OB Exam: + cervical dilation (3cm per nurse) OB Exam Monitor Tracing: + external FHT monitor used, + external uterine monitor used (ctx q2-4min), + category I and + normal FHT variability Results & Data Vital Signs (Past 12 Hours) Vital Signs Temp Pulse Resp BP Pulse Ox 10/11/24 00:26 91 H 98 10/11/24 00:21 96 H 100 10/11/24 00:16 92 H 99 10/11/24 00:11 95 H 98 10/11/24 00:07 98 H 143/86 H 10/11/24 00:06 101 H 98 10/11/24 00:01 98 H 97 10/10/24 23:56 90 100 10/10/24 23:51 100 H 98 10/10/24 23:46 97 H 98 10/10/24 23:41 101 H 98 10/10/24 23:36 105 H 97 10/10/24 23:31 103 H 99 10/10/24 23:26 104 H 97 10/10/24 23:22 95 H 93 10/10/24 23:21 98.1 F 97 H 98 10/10/24 23:10 98 H 96 10/10/24 23:08 91 H 132/77 10/10/24 23:05 103 H 98 10/10/24 23:00 96 H 99 10/10/24 22:55 95 H 97 10/10/24 22:50 97 H 98 10/10/24 22:45 100 H 98 10/10/24 22:40 98 H 97 10/10/24 22:35 94 H 98 10/10/24 22:30 97 H 98 10/10/24 22:25 103 H 98 10/10/24 22:20 107 H 97 10/10/24 22:15 96 H 96 10/10/24 22:10 99 H 100 10/10/24 22:09 100 H 131/76 10/10/24 22:05 94 H 97 10/10/24 22:00 97 H 98 10/10/24 21:55 96 H 99 10/10/24 21:50 104 H 98 10/10/24 21:45 96 H 98 10/10/24 21:40 103 H 97 10/10/24 21:35 97 H 97 10/10/24 21:30 98.2 F 97 H 98 10/10/24 21:25 99 H 99 10/10/24 21:20 105 H 99 10/10/24 21:15 99 H 98 10/10/24 21:10 99 H 99 10/10/24 21:06 100 H 139/86 10/10/24 21:05 101 H 97 10/10/24 21:00 102 H 99 10/10/24 20:55 101 H 98 10/10/24 20:50 96 H 99 10/10/24 20:45 104 H 99 10/10/24 20:40 106 H 99 10/10/24 20:06 104 H 141/85 H 10/10/24 19:30 98.1 F 10/10/24 19:09 102 H 144/85 H 10/10/24 17:52 110 H 142/72 H 10/10/24 17:27 109 H 142/85 H 10/10/24 17:23 98.8 F 20 Coding Level of Care Code None Diagnoses 39 weeks gestation of Z3A.39 LGA (large for gestational age) fetus affecting management of mother O36.60X0 Insulin controlled gestational diabetes mellitus (GDM) during O24.414 History of gestational hypertension Z87.59 Obesity affecting , antepartum O99.210
[2024-10-11] MEDS: fentANYL 2 MCG/ML BUPIVacaine 0.125%-NSS 100ML BAG ONE (00:56)
[2024-10-11] MEDS: fentaNYL citrate PF 100 MCG/2 ML VIAL ONE (00:57)
[2024-10-11] MEDS: BUPIVACAINE 0.25% PF 30 ML VIAL ONE (00:58)
[2024-10-11] MEDS: LIDOCAINE 2%/EPINEPHRINE 1:200,000 20 ML PF ONE (00:59)
[2024-10-11] MEDS: ePHEDrine sulfate 50 MG/ML AMP ONE (01:14)
[2024-10-11] MEDS: ONDANSETRON INJ 2 MG/ML 2 ML VIAL IV PRN (02:36)
--- NOTE | 2024-10-11 04:11 | Labor Progress Brief Note ---
Date of Service October 11, 2024 Subjective comfortable with epidural. Assessment & Plan (1) 39 weeks gestation of : (2) Insulin controlled gestational diabetes mellitus (GDM) during : (3) LGA (large for gestational age) fetus affecting management of mother: (4) History of gestational hypertension: (5) Obesity affecting , antepartum: Plan bps stable. fhts categ 1. good cx change. c/w pit. Admission and Anticipated Discharge Date Admission Date: October 10, 2024 Physical Exam Constitutional: WD/WN, vitals as above Genitourinary: Manual OB Exam: + cervical dilation 4 cm, + cervical effacement 80% and + station -2 OB Exam Monitor Tracing: + external FHT monitor used, + external uterine monitor used (q2-4), + category I, + normal FHT variability and + early decelerations present Results & Data Vital Signs (Past 12 Hours) Vital Signs Temp Pulse Resp BP Pulse Ox 10/11/24 04:06 109 H 99 10/11/24 04:02 109 H 136/68 10/11/24 04:01 110 H 98 10/11/24 03:58 97 H 91 10/11/24 03:56 101 H 97 10/11/24 03:51 95 H 96 10/11/24 03:46 97 10/11/24 03:46 103 H 10/11/24 03:46 101 H 125/58 L 10/11/24 03:44 102 H 90 10/11/24 03:41 101 H 97 10/11/24 03:36 102 H 97 10/11/24 03:32 101 H 131/65 10/11/24 03:31 104 H 97 10/11/24 03:26 112 H 98 10/11/24 03:25 18 10/11/24 03:25 97.9 F 18 10/11/24 03:21 111 H 97 10/11/24 03:17 107 H 128/64 10/11/24 03:16 109 H 94 10/11/24 03:13 110 H 91 10/11/24 03:11 101 H 93 10/11/24 03:07 105 H 93 10/11/24 03:06 107 H 95 10/11/24 03:01 100 H 95 10/11/24 03:00 112 H 111/57 L 10/11/24 02:56 115 H 96 06/24/25 02:54 106 H 94 10/11/24 02:51 120 H 97 10/11/24 02:46 116 H 117/57 L 96 10/11/24 02:41 118 H 98 10/11/24 02:36 117 H 97 10/11/24 02:31 117 H 131/63 97 10/11/24 02:26 120 H 97 10/11/24 02:21 97 10/11/24 02:21 105 H 10/11/24 02:21 106 H 92 10/11/24 02:16 109 H 94 10/11/24 02:15 113 H 105/56 L 10/11/24 02:12 103 H 93 10/11/24 02:11 103 H 96 10/11/24 02:07 111 H 93 10/11/24 02:06 105 H 95 10/11/24 02:01 110 H 96 10/11/24 02:00 106 H 116/58 L 10/11/24 01:57 112 H 116/58 L 10/11/24 01:56 111 H 97 10/11/24 01:52 111 H 115/57 L 10/11/24 01:51 114 H 97 10/11/24 01:49 104 H 93 10/11/24 01:47 122 H 120/57 L 10/11/24 01:46 121 H 98 10/11/24 01:42 115 H 124/63 10/11/24 01:41 116 H 98 10/11/24 01:37 126 H 120/66 10/11/24 01:36 123 H 98 10/11/24 01:31 97.9 F 10/11/24 01:31 97 10/11/24 01:31 127 H 10/11/24 01:31 118 H 136/61 10/11/24 01:29 126 H 119/58 L 10/11/24 01:27 114 H 132/60 10/11/24 01:26 117 H 98 10/11/24 01:25 114 H 127/60 10/11/24 01:23 125 H 123/58 L 10/11/24 01:21 96 10/11/24 01:21 116 H 10/11/24 01:21 121 H 124/58 L 10/11/24 01:19 127 H 120/59 L 10/11/24 01:17 116 H 139/70 10/11/24 01:16 118 H 99 10/11/24 01:15 125 H 140/72 10/11/24 01:13 109 H 125/70 10/11/24 01:12 122 H 99/51 L 10/11/24 01:11 126 H 119/54 L 100 10/11/24 01:09 111 H 142/66 H 10/11/24 01:07 107 H 149/76 H 10/11/24 01:06 109 H 98 10/11/24 01:05 110 H 144/76 H 10/11/24 01:03 108 H 144/73 H 10/11/24 01:01 107 H 147/74 H 98 10/11/24 00:59 96 H 140/69 10/11/24 00:57 103 H 150/75 H 10/11/24 00:56 100 H 98 10/11/24 00:55 97 H 146/70 H 10/11/24 00:53 103 H 140/72 10/11/24 00:51 98 10/11/24 00:51 99 H 10/11/24 00:51 100 H 140/65 10/11/24 00:50 107 H 150/72 H 10/11/24 00:47 96 H 156/76 H 10/11/24 00:46 94 H 98 10/11/24 00:42 117 H 93 10/11/24 00:41 114 H 98 10/11/24 00:39 100 H 136/95 10/11/24 00:36 111 H 96 10/11/24 00:31 99 H 98 10/11/24 00:26 91 H 98 10/11/24 00:21 96 H 100 10/11/24 00:16 92 H 99 10/11/24 00:11 95 H 98 10/11/24 00:07 98 H 143/86 H 10/11/24 00:06 101 H 98 10/11/24 00:01 98 H 97 10/10/24 23:56 90 100 10/10/24 23:51 100 H 98 10/10/24 23:46 97 H 98 10/10/24 23:41 101 H 98 10/10/24 23:36 105 H 97 10/10/24 23:31 103 H 99 10/10/24 23:26 104 H 97 10/10/24 23:22 95 H 93 10/10/24 23:21 98.1 F 97 H 98 10/10/24 23:10 98 H 96 10/10/24 23:08 91 H 132/77 10/10/24 23:05 103 H 98 10/10/24 23:00 96 H 99 10/10/24 22:55 95 H 97 10/10/24 22:50 97 H 98 10/10/24 22:45 100 H 98 10/10/24 22:40 98 H 97 10/10/24 22:35 94 H 98 10/10/24 22:30 97 H 98 10/10/24 22:25 103 H 98 10/10/24 22:20 107 H 97 10/10/24 22:15 96 H 96 10/10/24 22:10 99 H 100 10/10/24 22:09 100 H 131/76 10/10/24 22:05 94 H 97 10/10/24 22:00 97 H 98 10/10/24 21:55 96 H 99 10/10/24 21:50 104 H 98 10/10/24 21:45 96 H 98 10/10/24 21:40 103 H 97 10/10/24 21:35 97 H 97 10/10/24 21:30 98.2 F 97 H 98 10/10/24 21:25 99 H 99 10/10/24 21:20 105 H 99 10/10/24 21:15 99 H 98 10/10/24 21:10 99 H 99 10/10/24 21:06 100 H 139/86 10/10/24 21:05 101 H 97 10/10/24 21:00 102 H 99 10/10/24 20:55 101 H 98 10/10/24 20:50 96 H 99 10/10/24 20:45 104 H 99 10/10/24 20:40 106 H 99 10/10/24 20:06 104 H 141/85 H 10/10/24 19:30 98.1 F 10/10/24 19:09 102 H 144/85 H 10/10/24 17:52 110 H 142/72 H 10/10/24 17:27 109 H 142/85 H 10/10/24 17:23 98.8 F 20 Coding Level of Care Code None Diagnoses 39 weeks gestation of Z3A.39 Insulin controlled gestational diabetes mellitus (GDM) during O24.414 LGA (large for gestational age) fetus affecting management of mother O36.60X0 History of gestational hypertension Z87.59 Obesity affecting , antepartum O99.210
[2024-10-11] MEDS ORDERED: ROPIVACAINE 0.5% 5 MG/ML 30 ML VIAL ONE (06:21)
[2024-10-11] MEDS ORDERED: LIDOCAINE 2%/EPINEPHRINE 1:200,000 20 ML PF ONE (06:21)
[2024-10-11] MEDS ORDERED: fentaNYL citrate PF 100 MCG/2 ML VIAL ONE (06:22)
--- NOTE | 2024-10-11 06:22 | Anesthesia Procedure Note ---
Date of Service October 11, 2024 Anesthesia Epidural Re-Dose Vital Signs Temp Pulse Resp BP Pulse Ox 36.6 C 102 H 18 136/75 96 10/11/24 05:30 10/11/24 06:16 10/11/24 03:25 10/11/24 06:16 10/11/24 06:16 Notes Dilatation (cm): 4.0 Effacement (%): 80 Called by nursing to evaluate epidural as the patient is having increased pain. The epidural was re-dosed with the following medications (all medications via epidural route) after negative aspiration of the epidural catheter for CSF/HEME. 2ml 2% lidocaine with epi, 3mL ropivacaine 0.5% and 100 mcg fetanyl via epidural After Epidural Re-Dose Mental Status: alert / awake / arousable Pain: improving with treatment Airway Patency, RR, SpO2: stable & adequate BP & HR: stable & adequate
[2024-10-11] MEDS: miSOPROStoL 200 MCG TAB PR ONE (07:20)
--- NOTE | 2024-10-11 07:27 | Delivery Summary ---
Vaginal Delivery Summary Date of Service October 11, 2024 Vaginal Delivery Summary The patient dilated to complete and pushed to deliver a viable female Apgars 8 and 9 via over small vaginal laceration. Mild shoulder dystocia encountered relieved by Johnnie Berry maneuvers. Shoulders and body delivered with ease. was vigorous and crying at . Mouth and nose bulb suctioned. Cord clamped at 30 seconds of life and to maternal abdomen where the cord was then doubly clamped and cut. Placenta delivered spontaneously and intact, three-vessel cord. Hemostasis not achieved with dilute pitocin and uterine massage. Rectal cytotec given 1000mcg and bp checked. Bleeding improving, hemostasis adequate. Bladder recently drained for 150cc. Cervix and sulci intact. Small vaginal laceration repaired with 3-0 vicryl. QBL 616 cc. Mother and baby stable in recovery. [facility] Vaginal Delivery Charge Delivery Type Details:
[2024-10-11] MEDS ORDERED: DIPHTHER/TETAN/PERTUS Vaccine (Tdap, Adol/Adult) 0.5mL IM ONE (07:37)
[2024-10-11] MEDS ORDERED: HYDROCORTISONE ACETATE 25 MG SUPP PR PRN (07:37)
[2024-10-11] MEDS ORDERED: IBUPROFEN 600 MG TAB PO PRN (07:37)
[2024-10-11] MEDS ORDERED: oxyCODONE/ACETAMINOPHEN 5mg/325mg TAB PO PRN (07:37)
[2024-10-11] MEDS ORDERED: OXYTOCIN 30 UNITS/NSS 30 UNITS/500 ML BAG IV PRN (07:37)
[2024-10-11] MEDS: OXYTOCIN 20 UNITS in LACTATED RINGER'S 1,000 ML IV SCH (07:43)
[2024-10-11] MEDS: SODIUM CHLORIDE 0.9% PF INJ 10 ML VIAL ONE (07:49)
--- NOTE | 2024-10-11 08:10 | Anesthesia Procedure Note ---
Date of Service October 11, 2024 Anesthesia Post Epidural Note Vital Signs Vital Signs: Temp Pulse Resp BP Pulse Ox 97.9 F 108 H 18 145/65 H 97 10/11/24 05:30 10/11/24 07:57 10/11/24 07:57 10/11/24 07:57 10/11/24 07:26 Notes Mental Status: alert / awake / arousable and participated in evaluation Nausea / Vomiting: adequately controlled Pain: adequately controlled Airway Patency, RR, SpO2: stable & adequate BP & HR: stable & adequate Hydration State: stable & adequate Neuraxial Anesthesia: was administered and sensory block is resolving Anesthetic Complications: no major complications apparent and Pt Satisfied with anesthetic care Epidural: Removed without complications and With tip intact
[2024-10-11] MEDS: DOCUSATE SODIUM 100 MG CAP PO SCH (09:12)
[2024-10-11] MEDS: PRENATAL VITAMIN 1 TAB PO SCH (09:12)
[2024-10-11] MEDS: BENZOCAINE 20% SPRY 85 APPLN/85 GM CAN EXT PRN (09:12)
[2024-10-11] MEDS: ACETAMINOPHEN 325 MG TAB PO PRN (13:50)
[2024-10-12] MEDS: miSOPROStoL 200 MCG TAB ONE (02:25)
--- NOTE | 2024-10-12 06:14 | Obstetrical Progress Note ---
Date of Service October 12, 2024 Assessment & Plan (1) Encounter for care and examination after delivery: (2) LGA (large for gestational age) fetus affecting management of mother: (3) Insulin controlled gestational diabetes mellitus (GDM) during : (4) Obesity affecting , antepartum: Plan Pt is 24 yo post- day 1 s/p at 39w4d. was complicated by GDM controlled with insulin, fetus LGA, and obesity. Pt with tachycardia overnight, but BP and O2 sat is within normal range. Pt is recverying well and requesting DC to home today - Encourage ambulation - Encourage breast feeding - Pain control with tylenol and ibuprofen - Anticipate DC today Admission and Anticipated Discharge Date Admission Date: October 10, 2024 Supervising Physician Co-Signing Physician Notes Resident Physician Supervision Note: I was present with Dr. Hall during the history and exam. I discussed the case with the resident and agree with the findings and plan as documented in the note. Any exceptions or clarifications are listed here: [None] Documented By: Justin Chapman MD, FACOG Subjective Pt is 24 yo post- day 1 s/p at 39w4d Ambulation:In room Voiding:voiding normally Passing gas: yes BM: yes Diet tolerance:regular diet Lochia:bloody, no clots Feeding type: breast Current pain level: 1-3 /10 improved with ibuprofen Resting comfortably this morning in NAD. Denies DEWITT, CP, SOB, N/V/D, LE pain/swelling. Review of Systems Review of Systems: As per HPI Physical Exam Constitutional: WD/WN, vitals as above Respiratory: normal respiratory effort, lungs clear to auscultation Cardiovascular: RRR, no murmur, no edema Gastrointestinal (Abdomen): normal bowel sounds, soft, nontender, no hepatosplenomegaly Uterine fundus firm and at 1 cm below level of umbilicus Neurologic: PERRL, EOMI, accommodation nl, no face palsy, no dysarthria Moving all 4 extremities on command Psychiatric: A+Ox3, euthymic affect Results & Data Vital Signs (Past 12 Hours) Vital Signs Temp Pulse Resp BP Pulse Ox O2 Del Method 10/12/24 03:30 36.4 C L 110 H 16 128/84 96 Room Air 10/11/24 23:40 36.4 C L 108 H 18 139/83 99 Room Air 10/11/24 19:55 36.7 C 97 H 18 137/85 97 Room Air Resident Activity Tracking Resident Involvement: Resident Care Provided Care Provided: Adult Hospital Medicine
[2024-10-12 06:37] LABS: Hematocrit (blood only) 29.6 % (37.0-47.0); Hemoglobin 9.4 g/dl (12.0-16.0)
[2024-10-12 09:50] VITALS: PULSE 102; RESP 20; TEMP 98.4; O2SAT 98
[2024-10-12 11:26] VITALS: BP 118/76
[2024-10-12] MEDS ORDERED: bisacodyL 5 MG TABEC PO SCH (20:00)
== END 2024-10-12 12:24 | disposition home or self-care (01) | DRG 807 ==
LOC: 4S1 17:11 → 4E2 10-11 10:07